=== PATIENT | female | born 1990 | race Caucasian/White ===

== ENCOUNTER 2018-06-07 13:42 | Emergency (ER) | payer OTHER, SELFPAY ==
[2018-06-07 14:50] LABS: Barbiturates NEGATIVE (NEGATIVE); Benzodiazepines NEGATIVE (NEGATIVE); Cocaine NEGATIVE (NEGATIVE); METHAMPHETAM NEGATIVE (NEGATIVE); Methadone NEGATIVE (NEGATIVE); Opiates NEGATIVE (NEGATIVE); Phencyclidine NEGATIVE (NEGATIVE); THC Cannibis POSITIVE (NEGATIVE)
[2018-06-07 14:58] LABS: Absolute Lymphocytes (CBC) 2.1 K/uL (0.7-4.9); Absolute Monocytes 0.7 K/uL (0.1-1.3); Absolute Neutrophil 6.4 K/uL (1.8-8.0); Basophils % 0.3 % (0-1.3); Eosinophils % 0.4 % (0-4.4); Hematocrit 46.3 % (36.0-45.0); Lymphocytes % 22.8 % (15.3-44.8); MCH 31.7 pg (27.0-35.0); MCV 91.9 fL (80-100); MPV 11.7 fL (7.6-11.3); RBC Red Blood Cell Count 5.04 M/uL (3.86-4.86)
[2018-06-07 15:00] LABS: Urine Blood 1+ (NEG); Urine Glucose NEGATIVE (NEG); Urine Protein NEGATIVE (NEG); Urine pH 7.5 (5.0-7.0)
[2018-06-07 15:02] LABS: Protime INR 1.05
[2018-06-07 15:23] LABS: ALT/SGPT 31 U/L (12-78); AST/SGOT 18 U/L (15-37); Alcohol Serum/Plasma < 3 mg/dL (<3); Alkaline Phosphatase 88 U/L (45-117); BUN Blood Urea Nitrogen 16 mg/dL (7-18); Bicarbonate 26 mmol/L (21-32); Bilirubin Direct 0.2 mg/dL (0-0.2); Bilirubin Total 0.7 mg/dL (0.2-1.0); Glucose Level 96 mg/dL (74-106); Potassium 3.7 mmol/L (3.5-5.1); Protein, Total 8.6 g/dL (6.4-8.2); Sodium Level 141 mmol/L (136-145)
[2018-06-07] MEDS ORDERED: NA CHLORIDE 0.9% 1,000 ML ONE (15:58)
--- NOTE | 2018-06-07 16:26 | EKG ---
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
[2018-06-07] MEDS ORDERED: DIAZEPAM 5 MG TABLET ONE (18:52)
[2018-06-08] MEDS ORDERED: ZOLPIDEM TARTRATE 5 MG TABLET ONE (01:12)
[2018-06-08] MEDS ORDERED: LORAZEPAM 1 MG TABLET ONE ×2 (07:56→16:27)
--- NOTE | 2018-06-08 08:29 | ER ---
Nurse's Notes [facility] Name: Alexandra Ambrosio Age: 27 yrs Sex: Female : 1990 Arrival Date: 06/07/2018 Time: 13:45 Bed 18 Private MD: Diagnosis: Suicidal ideations Presentation: 06/07 13:46 Presenting complaint: Patient states: She tried to commit suicide on Monday and was aj1 transported to [facility] by PD, she was suppose to be transferred to an inpatient facility, but after 3 days in the ER she was feeling better so she decided to leave. Now the suicidal thoughts have returned, states that all she could think about this morning was hanging herself and she has been unable to eat in the last 3 days. Transition of care: patient was not received from another setting of care. Onset of symptoms was June 07, 2018. Risk Assessment: Do you want to hurt yourself or someone else? Patient reports desire/thoughts of hurting themselves or someone else. Provider notified. Initial Sepsis Screen: Does the patient meet any 2 criteria? No. Patient's initial sepsis screen is negative. Does the patient have a suspected source of infection? No. Patient's initial sepsis screen is negative. Care prior to arrival: None. 13:46 Method Of Arrival: Ambulatory aj1 13:46 Acuity: MELINDA 2 aj1 Triage Assessment: 13:51 General: Appears in no apparent distress. uncomfortable, Behavior is calm, cooperative, aj1 appropriate for age. Pain: Denies pain. Neuro: Level of Consciousness is awake, alert, obeys commands. APPLICATION SUPPORT MANAGER: 13:51 LMP 05/31/2018 aj1 Historical: - Allergies: 13:51 No Known Allergies; aj1 - Home Meds: 13:51 sertraline 50 mg oral tab 1 tab once daily [Active]; hydroxyzine HCl 25 mg Oral tab 1 aj1 tab 3 times per day [Active]; - PMHx: 13:51 Depression; aj1 - PSHx: 13:51 Cholecystectomy; aj1 - Immunization history:: Flu vaccine is up to date. - Social history:: Smoking status: Patient uses tobacco products, smokes one pack cigarettes per day. Patient uses alcohol, but reports only rare drinking. Reports smoking weed a week ago, but that's not usual for her. - Ebola Screening: : Patient denies travel to an Ebola-affected area in the 21 days before illness onset. Screenin:56 Abuse screen: Denies threats or abuse. Nutritional screening: No deficits noted. rb1 Tuberculosis screening: No symptoms or risk factors identified. Fall Risk None identified. Assessment: 13:56 General: Appears in no apparent distress. comfortable, slender, Behavior is calm, rb1 cooperative, Denies fever. Neuro: Level of Consciousness is awake, alert, obeys commands, Oriented to person, place, time, situation. Cardiovascular: Capillary refill < 3 seconds is brisk in bilateral fingers. Respiratory: Airway is patent Respiratory effort is even, unlabored, Respiratory pattern is regular, symmetrical. GI: No signs and/or symptoms were reported involving the gastrointestinal system. : No signs and/or symptoms were reported regarding the genitourinary system. Derm: Skin is pink, warm \\T\\ dry. Musculoskeletal: Range of motion: intact in all extremities. 13:56 Reassessment: Personal belonging sheet was completed and signed by the pt., myself, and rb1 witnessed by CIARA Lagunas and placed on the pt. chart. Security was called to take the pt. belongings to the vault and they were also given a copy of the belongings sheet. 14:55 Reassessment: Patient appears in no apparent distress at this time. No changes from rb1 previously documented assessment. 15:54 Reassessment: Patient appears in no apparent distress at this time. Patient and/or rb1 family updated on plan of care and expected duration. Pain level reassessed. Patient is alert, oriented x 3, equal unlabored respirations, skin warm/dry/pink. 16:45 Reassessment: Patient appears in no apparent distress at this time. Patient and/or rb1 family updated on plan of care and expected duration. Pain level reassessed. Patient is alert, oriented x 3, equal unlabored respirations, skin warm/dry/pink. Pt. is crying and stated, "I just start crying, it comes in waves. I am devastated about everything that is going on.". 17:40 Reassessment: Patient appears in no apparent distress at this time. No changes from rb1 previously documented assessment. 18:22 Reassessment: Patient appears in no apparent distress at this time. Patient and/or rb1 family updated on plan of care and expected duration. Pain level reassessed. Patient is alert, oriented x 3, equal unlabored respirations, skin warm/dry/pink. Patient denies pain at this time. 19:00 Reassessment: RECD REPORT FROM SHANA CUEVAS. 27YO WF P/W +SI AND DEPRESSION 2/2 FAMILY bp STRESSORS. PT CONTINUES TO ENDORSE SI. MEDICAL CLEARANCE AND [facility] SCREENING COMPLETED, INPATIENT PLACEMENT PENDING. SITTER AT B/S. 06/08 00:00 Reassessment: PT RESTING QUIETLY, NO S/S ACUTE DISTRESS. SITTER AT B/S, PSYCH TRANSFER bp PENDING. 04:49 Reassessment: PT RESTING QUIETLY, VS STABLE. PSYCH TRANSFER REMAINS IN PROCESS. bp 07:30 Reassessment: Patient appears in no apparent distress at this time. pt currently still em wants help, reports being anxious and crying, denies pain, pt request breakfast tray, placed order for tray. 08:18 Reassessment: Patient appears in no apparent distress at this time. Patient and/or em family updated on plan of care and expected duration. Pain level reassessed. gave report to Raya from [facility], will do doc to doc. 09:00 Reassessment: Patient appears in no apparent distress at this time. Patient and/or em family updated on plan of care and expected duration. Pain level reassessed. Patient is alert, oriented x 3, equal unlabored respirations, skin warm/dry/pink. 10:56 Reassessment: spoke with Darlene with [facility] who states that she will call us back after speaking with intake nurse. Attempting to get administrative approval as doc to doc reports have been done and nurse to nurse. 11:32 Reassessment: [facility] reports that patient is on "waiting list pending discharges" Attempted to Call [facility] who reports they are also waiting for discharges. 11:35 Reassessment: [facility] states they do not have appropriate bed available at this time and will call back shortly for more information. 12:00 Reassessment: Patient appears in no apparent distress at this time. Patient and/or em family updated on plan of care and expected duration. Pain level reassessed. Patient is alert, oriented x 3, equal unlabored respirations, skin warm/dry/pink. pt reports being nauseous and unable to eat lunch tray, Chika, PAPER PRODUCTS SUPERVISOR notified, new orders received. 12:35 Reassessment: [facility] reports that they are at capacity and have no bed ss availability at this time. 13:00 Reassessment: Patient appears in no apparent distress at this time. Patient and/or em family updated on plan of care and expected duration. Pain level reassessed. Patient is alert, oriented x 3, equal unlabored respirations, skin warm/dry/pink. pt family and son at bedside Patient denies pain at this time. 14:14 Reassessment: Patient appears in no apparent distress at this time. Patient and/or em family updated on plan of care and expected duration. Pain level reassessed. Patient is alert, oriented x 3, equal unlabored respirations, skin warm/dry/pink. 16:10 Reassessment: Patient appears in no apparent distress at this time. Patient and/or em family updated on plan of care and expected duration. Pain level reassessed. Patient is alert, oriented x 3, equal unlabored respirations, skin warm/dry/pink. reports being anxious, SHELIA Farr notified, new medication orders received. 17:00 Reassessment: Patient appears in no apparent distress at this time. Patient and/or em family updated on plan of care and expected duration. Pain level reassessed. Patient is alert, oriented x 3, equal unlabored respirations, skin warm/dry/pink. 19:00 Reassessment: Patient appears in no apparent distress at this time. Patient and/or jd3 family updated on plan of care and expected duration. Pain level reassessed. Patient is alert, oriented x 3, equal unlabored respirations, skin warm/dry/pink. 19:13 Reassessment: Patient appears in no apparent distress at this time. Patient and/or em family updated on plan of care and expected duration. Pain level reassessed. Patient is alert, oriented x 3, equal unlabored respirations, skin warm/dry/pink. 20:00 Reassessment: Patient appears in no apparent distress at this time. Patient and/or jd3 family updated on plan of care and expected duration. Pain level reassessed. Patient is alert, oriented x 3, equal unlabored respirations, skin warm/dry/pink. pt resting in bed with eyes closed, even and unlabored respirations, no distress noted at this time. sitter at bedside. 21:00 Reassessment: Patient appears in no apparent distress at this time. Patient and/or jd3 family updated on plan of care and expected duration. Pain level reassessed. Patient is alert, oriented x 3, equal unlabored respirations, skin warm/dry/pink. 21:24 Reassessment: Patient appears in no apparent distress at this time. Patient and/or jd3 family updated on plan of care and expected duration. Pain level reassessed. Patient is alert, oriented x 3, equal unlabored respirations, skin warm/dry/pink. report given to EMS. Psych: 06/07 13:56 Subjective: Patient's mood is sad. Objective: Patient is cooperative, Speech is normal, rb1 Affect is appropriate. Interventions: Removed personal items and placed in bag. Patient placed in hospital gown. Searched person for dangerous items. Belonging list filled out. Suicide Risk Assessment: Sad Person Scale: Sex of patient: Female: Score 0 points. Age of patient: Score 1 point if patient 15-34. Depression: Score 1 point if signs of depression are present. Previous Attempt: Score 1 point if patient has previously attempted suicide. Substance Abuse: Score 0 point if patient does not abuse alcohol or drugs. Rational Thinking: Score 1 point if patient is lacking rational thinking. Social Support: Score 1 point if social support is lacking and/or unavailable. Organized Plan: Score 1 point if patient had a plan in place. Relationship: Score 0 point if patient has a spouse or domestic partner. Chronic Sickness: Score 0 point if patient does not have a chronic illness, debilitating, or severe disorder. TOTAL POINTS: If total points are 5-6, proposed clinical action is to strongly consider hospitalization, depending upon confidence in the follow-up arrangement. Implement suicide precautions. Safety Checks: Personal items have been removed. Door is open. No visitors are present at this time. Pt denies substance abuse. Commitment: Patient will be a voluntary commitment. Vital Signs: 13:51 BP 128 / 75; Pulse 108; Resp 20; Temp 98.9(TE); Pulse Ox 97% on R/A; Weight 52.62 kg aj1 (R); Height 5 ft. 4 in. (162.56 cm) (R); 14:15 BP 122 / 74 (auto/reg); Pulse 98; Resp 18; Pulse Ox 98% on R/A; Pain 0/10; vd2 14:30 BP 124 / 78; Pulse 98; Resp 18; Pulse Ox 98% on R/A; Pain 0/10; vd2 15:30 BP 137 / 96; Pulse 83; Resp 17; Pulse Ox 100% on R/A; rb1 16:52 BP 118 / 75 (auto/reg); Pulse 92; Resp 18 S; Pulse Ox 98% on R/A; Pain 0/10; vd2 17:30 BP 143 / 88; Pulse 86; Resp 16; Pulse Ox 95% on R/A; Pain 0/10; rb1 20:45 BP 132 / 76; Pulse 88; Resp 16; Pulse Ox 99% on R/A; mt 06/08 00:44 BP 116 / 86; Pulse 74; Resp 16; Pulse Ox 99% on R/A; mt 04:53 BP 99 / 71; Pulse 74; Resp 16; Pulse Ox 98% on R/A; mt 06:46 BP 102 / 67; Pulse 69; Resp 14; Pulse Ox 98% on R/A; mt 10:10 BP 105 / 69; Pulse 70; Resp 14; Temp 97.6(O); Pulse Ox 97% on R/A; mh5 13:40 BP 113 / 80; Pulse 80; Resp 15; Temp 98.2; Pulse Ox 98% on R/A; mh5 15:39 BP 108 / 68; Pulse 88; Resp 15; Temp 97.8(O); Pulse Ox 99% on R/A; mh5 19:24 BP 100 / 74 LA Supine (auto/reg); Pulse 80; Resp 18; Temp 98.4(O); Pulse Ox 100% on R/A;cc 06/07 13:51 Body Mass Index 19.91 (52.62 kg, 162.56 cm) aj1 ED Course: 06/07 13:45 Patient arrived in ED. sb2 13:49 Triage completed. aj1 13:51 Arm band placed on Patient placed in an exam room. aj1 13:54 Chika Juarez FNP-C is [facility]. kb 13:54 Jordan Gunderson MD is Attending Physician. kb 13:55 Safety checks: Items removed: yes. Door open/sign placed on door: yes. Sitter present: vd2 Yes. 13:58 Placed in gown. vd2 14:10 Safety checks: Door open/sign placed on door: yes. vd2 14:10 Safety checks: Sitter present: Yes. vd2 14:11 EKG done, by railroad signal technician. reviewed by Chika RAJAN. sm3 14:25 Safety checks: Door open/sign placed on door: yes. Sitter present: Yes. vd2 14:26 Initial lab(s) drawn, by me, Urine collected: clean catch specimen, clear. Inserted vd2 saline lock: 20 gauge in left antecubital area, using aseptic technique. 14:40 Safety Checks: Personal items have been removed. The door is open or patient has been rb1 placed in a hallway bed/chair. There are no family/friend visitors at this time Sitter present at this time. 14:45 Safety checks: Door open/sign placed on door: yes. Sitter present: Yes. vd2 15:00 Safety checks: Door open/sign placed on door: yes. Sitter present: Yes. vd2 15:15 Safety checks: Door open/sign placed on door: yes. Sitter present: Yes. vd2 15:30 Safety checks: Door open/sign placed on door: yes. Sitter present: Yes. vd2 15:32 Shana Badillo, RN is Primary Nurse. rb1 15:33 called the [facility] and spoke with Pita and she will call out a screener to eb come and evaluate the patient. 15:40 Rosanne from [facility] called and said she is in [place] and will be on her way eb shortly. 15:45 Safety checks: Door open/sign placed on door: yes. Sitter present: Yes. vd2 16:00 Safety checks: Door open/sign placed on door: yes. Sitter present: Yes. vd2 16:15 Safety checks: Door open/sign placed on door: yes. Sitter present: Yes. vd2 16:30 Safety checks: Door open/sign placed on door: yes. Sitter present: Yes. vd2 16:40 Rosanne from [facility] completed her screen and faxed patient information to [facility]. 16:45 Safety checks: Door open/sign placed on door: yes. Sitter present: Yes. vd2 16:57 attempted to initiate transfer at [facility] per Mylan they are at capacity and eb are unable to take the patient. 17:00 Safety checks: Door open/sign placed on door: yes. Sitter present: Yes. vd2 17:15 faxed patient records to the following facilities in the attempt to transfer: [facility], [facility], [facility], [facility], [facility], [facility], [facility], [facility], [facility], [facility], and [facility]. 17:15 Safety checks: Door open/sign placed on door: yes. Sitter present: Yes. vd2 17:30 Safety checks: Door open/sign placed on door: yes. Sitter present: Yes. vd2 17:45 Safety checks: Door open/sign placed on door: yes. Sitter present: Yes. vd2 17:47 Marina from [facility] called to let us know they could not take the patient eb due to them being at capacity. 18:00 Safety checks: Door open/sign placed on door: yes. vd2 18:15 Safety checks: Door open/sign placed on door: yes. Sitter present: Yes. vd2 18:30 Safety checks: Door open/sign placed on door: yes. Sitter present: Yes. vd2 18:45 Diet: Patient given water. vd2 18:45 Safety checks: Door open/sign placed on door: yes. Sitter present: Yes. vd2 18:59 PHCP role handed off by Chika Juarez FNP-C cp 18:59 Nic Ibrahim PA is PHCP. cp 19:00 Safety Checks: Personal items have been removed. The door is open or patient has been rb1 placed in a hallway bed/chair. There are no family/friend visitors at this time Sitter present at this time. 19:00 Report given to MASON Munoz. rb1 19:00 Safety checks: Items removed: yes. Door open/sign placed on door: yes. Family/friend mt present: no. Sitter present: Yes. 19:03 Safety Checks: Personal items have been removed. The door is open or patient has been er placed in a hallway bed/chair. There are no family/friend visitors at this time Sitter present at this time. 19:08 Primary Nurse role handed off by Shana Badillo, MASON bp 19:08 Alexander Da Silva, MASON is Primary Nurse. bp 19:14 Safety Checks: Personal items have been removed. The door is open or patient has been er placed in a hallway bed/chair. There are no family/friend visitors at this time Sitter present at this time. 19:15 Safety checks: Items removed: yes. Door open/sign placed on door: yes. Family/friend mt present: no. Sitter present: Yes. 19:30 Safety Checks: Personal items have been removed. The door is open or patient has been er placed in a hallway bed/chair. There are no family/friend visitors at this time Sitter present at this time. 19:30 Safety checks: Items removed: yes. Door open/sign placed on door: yes. Family/friend mt present: no. Sitter present: Yes. 19:45 Safety checks: Items removed: yes. Door open/sign placed on door: yes. Family/friend mt present: no. Sitter present: Yes. 20:00 Safety checks: Items removed: yes. Door open/sign placed on door: yes. Family/friend mt present: no. Sitter present: Yes. 20:15 Safety checks: Items removed: yes. Door open/sign placed on door: yes. Family/friend mt present: no. Sitter present: Yes. 20:30 Safety checks: Items removed: yes. Door open/sign placed on door: yes. Family/friend mt present: no. Sitter present: Yes. 20:45 Safety checks: Items removed: yes. Door open/sign placed on door: yes. Family/friend mt present: no. Sitter present: Yes. 21:00 Safety checks: Items removed: yes. Door open/sign placed on door: yes. Family/friend mt present: no. Sitter present: Yes. 21:15 Safety checks: Items removed: yes. Door open/sign placed on door: yes. Family/friend mt present: no. Sitter present: Yes. 21:30 Safety checks: Items removed: yes. Door open/sign placed on door: yes. Family/friend mt present: no. Sitter present: Yes. 21:45 Safety checks: Items removed: yes. Door open/sign placed on door: yes. Family/friend mt present: no. Sitter present: Yes. 22:00 Safety checks: Items removed: yes. Door open/sign placed on door: yes. Family/friend mt present: no. Sitter present: Yes. 22:15 Safety checks: Items removed: yes. Door open/sign placed on door: yes. Family/friend mt present: no. Sitter present: Yes. 22:30 Safety checks: Items removed: yes. Door open/sign placed on door: yes. Family/friend mt present: no. Sitter present: Yes. 22:30 Safety checks: Items removed: yes. Door open/sign placed on door: yes. Family/friend mt present: no. Sitter present: Yes. 22:45 Safety checks: Items removed: yes. Door open/sign placed on door: yes. Family/friend mt present: no. Sitter present: Yes. 23:00 Safety checks: Items removed: yes. Door open/sign placed on door: yes. Family/friend mt present: no. Sitter present: Yes. 23:15 Safety checks: Items removed: yes. Safety checks: Door open/sign placed on door: yes. jw5 Family/friend present: no. Sitter present: Yes. Placed in gown. 23:30 Safety checks: Items removed: yes. Door open/sign placed on door: yes. Family/friend jw5 present: no. Sitter present: Yes. 23:45 Safety checks: Items removed: yes. Door open/sign placed on door: yes. Family/friend jw5 present: no. Sitter present: Yes. 06/08 00:00 Safety checks: Items removed: yes. Door open/sign placed on door: yes. Family/friend jw5 present: no. Sitter present: Yes. 00:15 Safety checks: Items removed: yes. Door open/sign placed on door: yes. Family/friend jw5 present: no. Sitter present: Yes. 00:30 Safety checks: Items removed: yes. Door open/sign placed on door: yes. Family/friend jw5 present: no. Sitter present: Yes. 00:45 Safety checks: Items removed: yes. Door open/sign placed on door: yes. Family/friend mt present: no. Sitter present: Yes. 01:00 Safety checks: Items removed: yes. Door open/sign placed on door: yes. Family/friend mt present: no. Sitter present: Yes. 01:15 Safety checks: Items removed: yes. Door open/sign placed on door: yes. Family/friend mt present: no. Sitter present: Yes. 01:30 Safety checks: Items removed: yes. Door open/sign placed on door: yes. Family/friend mt present: no. Sitter present: Yes. 01:45 Safety checks: Items removed: yes. Door open/sign placed on door: yes. Family/friend mt present: no. Sitter present: Yes. 02:00 Safety checks: Items removed: yes. Door open/sign placed on door: yes. Family/friend mt present: no. Sitter present: Yes. 02:15 Safety checks: Items removed: yes. Door open/sign placed on door: yes. Family/friend mt present: no. Sitter present: Yes. 02:30 Safety checks: Items removed: yes. Door open/sign placed on door: yes. Family/friend mt present: no. Sitter present: Yes. 02:45 Safety checks: Items removed: yes. Door open/sign placed on door: yes. Family/friend mt present: no. Sitter present: Yes. 03:00 Safety checks: Items removed: yes. Door open/sign placed on door: yes. Family/friend mt present: no. Sitter present: Yes. 03:15 Safety checks: Items removed: yes. Door open/sign placed on door: yes. Family/friend mt present: no. Sitter present: Yes. 03:30 Safety checks: Items removed: yes. Door open/sign placed on door: yes. Family/friend mt present: no. Sitter present: Yes. 03:45 Safety checks: Items removed: yes. Door open/sign placed on door: yes. Family/friend mt present: no. Sitter present: Yes. 04:00 Safety checks: Items removed: yes. Door open/sign placed on door: yes. Family/friend mt present: no. Sitter present: Yes. 04:15 Safety checks: Items removed: yes. Door open/sign placed on door: yes. Family/friend mt present: no. Sitter present: Yes. 04:30 Safety checks: Items removed: yes. Door open/sign placed on door: yes. Family/friend mt present: no. Sitter present: Yes. 04:45 Safety checks: Items removed: yes. Door open/sign placed on door: yes. Family/friend mt present: no. Sitter present: Yes. 05:00 Safety checks: Items removed: yes. Door open/sign placed on door: yes. Family/friend mt present: no. Sitter present: Yes. 05:15 Safety checks: Items removed: yes. Door open/sign placed on door: yes. Family/friend mt present: no. Sitter present: Yes. 05:30 Safety checks: Items removed: yes. Door open/sign placed on door: yes. Family/friend mt present: no. Sitter present: Yes. 05:45 Safety checks: Items removed: yes. Door open/sign placed on door: yes. Family/friend mt present: no. Sitter present: Yes. 06:00 Safety checks: Items removed: yes. Door open/sign placed on door: yes. Family/friend mt present: no. Sitter present: Yes. 06:15 Safety checks: Items removed: yes. Door open/sign placed on door: yes. Family/friend mt present: no. Sitter present: Yes. 06:30 Safety checks: Items removed: yes. Door open/sign placed on door: yes. Family/friend mt present: no. Sitter present: Yes. 06:45 Safety checks: Items removed: yes. Door open/sign placed on door: yes. Family/friend mt present: no. Sitter present: Yes. 07:00 Safety checks: Items removed: yes. Door open/sign placed on door: yes. Family/friend mh5 present: no. Sitter present: Yes. 07:08 Report received from MASON Munoz. em 07:15 Safety checks: Items removed: yes. Door open/sign placed on door: yes. Family/friend mh5 present: no. Sitter present: Yes. 07:20 PHCP role handed off by Nic Ibrahim PA kb 07:20 Chika Juarez FNP-C is PHCP. pinky 07:21 Oral care given. mh5 07:30 Safety checks: Items removed: yes. Door open/sign placed on door: yes. Family/friend mh5 present: no. Sitter present: Yes. 07:45 Safety checks: Items removed: yes. Door open/sign placed on door: yes. Family/friend mh5 present: no. Sitter present: Yes. Diet: Patient given a regular meal tray. 08:00 Safety checks: Items removed: yes. Door open/sign placed on door: yes. Family/friend mh5 present: no. Sitter present: Yes. 08:15 Safety checks: Items removed: yes. Door open/sign placed on door: yes. Family/friend mh5 present: no. Sitter present: Yes. 08:30 Safety checks: Items removed: yes. Door open/sign placed on door: yes. Family/friend mh5 present: no. Sitter present: Yes. 08:45 Safety checks: Items removed: yes. Door open/sign placed on door: yes. Family/friend mh5 present: no. Sitter present: Yes. 09:00 Safety checks: Items removed: yes. Door open/sign placed on door: yes. Family/friend mh5 present: no. Sitter present: Yes. 09:15 Safety checks: Items removed: yes. Door open/sign placed on door: yes. Family/friend mh5 present: no. Sitter present: Yes. 09:30 Safety checks: Items removed: yes. Door open/sign placed on door: yes. Family/friend mh5 present: no. Sitter present: Yes. 09:32 called and spoke with Mert at [facility] to check the status of a transfer, per rafael Painting the new nurse taking the patient is reviewing the chart. We should get a call back shortly. 09:45 Safety checks: Items removed: yes. Door open/sign placed on door: yes. Family/friend mh5 present: no. Sitter present: Yes. 10:00 Safety checks: Items removed: yes. Door open/sign placed on door: yes. Family/friend mh5 present: no. Sitter present: Yes. 10:15 Safety checks: Items removed: yes. Door open/sign placed on door: yes. Family/friend mh5 present: no. Sitter present: Yes. 10:30 Safety checks: Items removed: yes. Door open/sign placed on door: yes. Family/friend mh5 present: no. Sitter present: Yes. 10:45 Safety checks: Items removed: yes. Door open/sign placed on door: yes. Family/friend mh5 present: no. Sitter present: Yes. 11:00 Safety checks: Items removed: yes. Door open/sign placed on door: yes. Family/friend mh5 present: no. Sitter present: Yes. 11:15 Safety checks: Items removed: yes. Door open/sign placed on door: yes. Family/friend mh5 present: no. Sitter present: Yes. 11:30 Safety checks: Items removed: yes. Door open/sign placed on door: yes. Family/friend mh5 present: no. Sitter present: Yes. 11:31 Diet: Patient given a regular meal tray. mh5 11:45 Safety checks: Items removed: yes. Door open/sign placed on door: yes. Family/friend mh5 present: no. Sitter present: Yes. 12:00 Safety checks: Items removed: yes. Door open/sign placed on door: yes. Family/friend mh5 present: no. Sitter present: Yes. 12:15 Safety checks: Items removed: yes. Door open/sign placed on door: yes. Family/friend mh5 present: no. Sitter present: Yes. 12:25 No provider procedures requiring assistance completed. em 12:30 Safety checks: Items removed: yes. Door open/sign placed on door: yes. Family/friend mh5 present: no. Sitter present: Yes. 12:45 Safety checks: Items removed: yes. Door open/sign placed on door: yes. Family/friend mh5 present: no. Sitter present: Yes. 13:00 Safety checks: Items removed: yes. Door open/sign placed on door: yes. Family/friend mh5 present: no. Sitter present: Yes. 13:15 Safety checks: Items removed: yes. Door open/sign placed on door: yes. Family/friend mh5 present: yes. Family/friends encouraged to stay with patient. Sitter present: Yes. 13:30 Safety checks: Items removed: yes. Door open/sign placed on door: yes. Family/friend mh5 present: no. Sitter present: Yes. 13:45 Safety checks: Items removed: yes. Door open/sign placed on door: yes. Family/friend mh5 present: no. Sitter present: Yes. 14:00 Safety checks: Items removed: yes. Door open/sign placed on door: yes. Family/friend mh5 present: no. Sitter present: Yes. 14:15 Safety checks: Items removed: yes. Door open/sign placed on door: yes. Family/friend mh5 present: no. Sitter present: Yes. Safety checks: Items removed: yes. 14:30 Safety checks: Items removed: yes. Door open/sign placed on door: yes. Family/friend mh5 present: yes. Family/friends encouraged to stay with patient. Sitter present: Yes. 14:45 Safety checks: Items removed: yes. Door open/sign placed on door: yes. Family/friend mh5 present: no. Sitter present: Yes. 15:00 Safety checks: Items removed: yes. Door open/sign placed on door: no. Family/friend mh5 present: yes. Family/friends encouraged to stay with patient. Sitter present: Yes. 15:00 BATHED. mh5 15:15 Safety checks: Items removed: yes. Door open/sign placed on door: yes. Family/friend mh5 present: yes. Family/friends encouraged to stay with patient. Sitter present: Yes. 15:30 Safety checks: Items removed: yes. Door open/sign placed on door: yes. Family/friend mh5 present: yes. Family/friends encouraged to stay with patient. Sitter present: Yes. 15:30 Safety checks: Items removed: yes. Door open/sign placed on door: yes. Family/friend mh5 present: yes. Family/friends encouraged to stay with patient. Sitter present: Yes. 15:45 Safety checks: Items removed: yes. Door open/sign placed on door: yes. Family/friend mh5 present: yes. Sitter present: Yes. 16:00 Safety checks: Items removed: yes. Door open/sign placed on door: yes. Family/friend mh5 present: yes. Sitter present: Yes. 16:15 Safety checks: Items removed: yes. Door open/sign placed on door: yes. Family/friend mh5 present: yes. Family/friends encouraged to stay with patient. Sitter present: Yes. 16:30 Safety checks: Items removed: yes. Door open/sign placed on door: yes. Family/friend mh5 present: yes. Family/friends encouraged to stay with patient. Sitter present: Yes. 16:36 connected Nakul from [facility] with the ED nurse for nurse to nurse. eb 16:45 Safety checks: Items removed: yes. Door open/sign placed on door: yes. Family/friend mh5 present: yes. Family/friends encouraged to stay with patient. Sitter present: Yes. 17:00 Safety checks: Items removed: yes. Door open/sign placed on door: yes. Family/friend mh5 present: yes. Family/friends encouraged to stay with patient. Sitter present: Yes. 17:04 refaxed all the clinical's to [facility] as requested by the transfer center again. eb 17:15 Safety checks: Items removed: yes. Door open/sign placed on door: yes. Family/friend mh5 present: no. Sitter present: Yes. 17:30 Safety checks: Items removed: yes. Door open/sign placed on door: yes. Family/friend mh5 present: no. Sitter present: Yes. 17:45 Safety checks: Items removed: yes. Door open/sign placed on door: yes. Family/friend mh5 present: no. Sitter present: Yes. 18:00 Safety checks: Items removed: yes. Door open/sign placed on door: yes. Family/friend mh5 present: no. Sitter present: Yes. 18:15 Safety checks: Items removed: yes. Door open/sign placed on door: yes. Family/friend mh5 present: no. Sitter present: Yes. 18:30 Safety checks: Items removed: yes. Safety checks: Items removed: yes. Door open/sign mh5 placed on door: yes. Family/friend present: no. Sitter present: Yes. 18:45 Safety checks: Items removed: yes. Door open/sign placed on door: yes. Family/friend mh5 present: no. Sitter present: Yes. 19:00 Safety checks: Items removed: yes. Door open/sign placed on door: yes. Family/friend mh5 present: no. Sitter present: Yes. 19:15 Safety checks: Items removed: yes. Door open/sign placed on door: yes. Family/friend cc present: no. Sitter present: Yes. 19:30 Safety checks: Items removed: yes. Door open/sign placed on door: yes. Family/friend cc present: no. Sitter present: Yes. 19:45 Safety checks: Items removed: yes. Door open/sign placed on door: yes. Family/friend cc present: no. Sitter present: Yes. 20:00 Safety checks: Items removed: yes. Door open/sign placed on door: yes. Family/friend cc present: no. Sitter present: Yes. 20:15 Safety checks: Items removed: yes. Door open/sign placed on door: yes. Family/friend cc present: no. Sitter present: Yes. 20:30 Safety checks: Items removed: yes. Door open/sign placed on door: yes. Family/friend cc present: no. Sitter present: Yes. 20:45 Safety checks: Items removed: yes. Door open/sign placed on door: yes. Family/friend cc present: no. Sitter present: Yes. 20:45 IV discontinued, intact, bleeding controlled, No redness/swelling at site. Pressure cc dressing applied. 21:00 Safety checks: Items removed: yes. Door open/sign placed on door: yes. Family/friend cc present: no. Sitter present: Yes. 21:20 Belongings given to [facility]. cc 21:24 IV discontinued, see previous documentation. jd3 Administered Medications: 06/07 16:01 Drug: NS 0.9% 1000 ml Route: IV; Rate: 1000 ml; Site: left antecubital; rb1 18:51 Drug: Valium 5 mg Route: PO; rb1 20:00 Follow up: Response: Anxiety decreased bp 06/08 01:11 Drug: Ambien 5 mg Route: PO; bp 07:54 Follow up: Response: No adverse reaction em 07:54 Drug: Ativan 1 mg Route: PO; em 09:54 Follow up: Response: No adverse reaction; Anxiety decreased em 12:05 Drug: Zofran 4 mg Route: PO; em 16:42 Follow up: Response: No adverse reaction; Nausea is decreased em 16:24 Drug: Ativan 1 mg Route: PO; em 19:00 Follow up: Response: No adverse reaction jd3 Outcome: 08:28 ER care complete, transfer ordered by MD. vance 21:23 Transferred by ground EMS to [facility], Transfer form completed. Note: jd3 report given to Kiera CUEVAS 21:23 Condition: stable 21:23 Instructed on the need for transfer, Demonstrated understanding of instructions. 21:25 Patient left the ED. jd3 Signatures: Chika Juarez, MARCELO-C MARCELO-Caitlin Delcid RN RN aj1 Niranjan Mann, DYE JIG OPERATOR DYE JIG OPERATOR em Teresa Moore, RN RN [facility], [facility]2 Astrid Coker Corey, PA PA cp Barber, Rebecca, MASON RN rb1 Vito, Deborah 5 [place], [facility] Ree, MASON Shepherd RN jd3 Alexander Da Silva RN RN bp Nick, Fay sb2 Donis, Christine 5 Kay Chaney Shakira 3 Vaishali Yeh Corrections: (The following items were deleted from the chart) 06/07 19:17 19:00 Reassessment: RECD REPORT FROM SHANA CUEVAS. 27YO WF P/W +SI AND DEPRESSION 2/2 bp FAMILY STRESSORS. PT CONTINUES TO ENDORSE SI. MEDICAL CLEARANCE AND [facility] SCREENING COMPLETED, INPATIENT PLACEMENT PENDING bp
--- NOTE | 2018-06-08 08:29 | EDPHYS ---
Physician Documentation [facility] Name: Alexandra Ambrosio Age: 27 yrs Sex: Female : 1990 Arrival Date: 06/07/2018 Time: 13:45 Bed 18 Private MD: ED Physician Jordan Gunderson HPI: 06/07 14:06 This 27 yrs old Female presents to ER via Ambulatory with complaints of kb Suicidal Ideation. 14:06 The patient presents to the emergency department with depression, over a relationship, kb suicide ideation, and the patient has a plan, to hang oneself. Onset: The symptoms/episode began/occurred 5 day(s) ago. Past psychiatric history: Prior diagnosis: depression, Psychiatric medications include: Zoloft, the patient has had a prior suicide gesture, where the patient took pills/meds, last week, the patient does not have a previous inpatient psychiatric history. Associated signs and symptoms: Pertinent positives; depression, suicide ideation, Pertinent negatives: abdominal pain, anxiety, chest pain, chills, delusions, fever, hallucinations, headache, homicidal ideation, nausea, night sweats, palpitations, paranoia, shortness of breath, substance abuse, tremor, vomiting. Severity of symptoms: At their worst the symptoms were moderate in the emergency department the symptoms are unchanged. The patient has experienced a previous episode, approximately 5 days ago. The patient has been recently seen by a physician:. 14:57 Pt states she is going through a divorce and her is trying to take custody of kb their son. States all she can think about lately is killing herself. States she tried to kill herself on Monday by taking benadryl and drinking alcohol. "I thought it would make my respirations go down and I wouldn't wake up. I thought it would look like an accident that way." States she woke up and wasn't in a good place. Went to her 's house and got into an argument, then tried to hang herself in the bedroom. She called the plate molder and told them she needed help after that and was transported to [facility]. States she was supposed to go to an inpatient facility, but waiting at [facility] was making her depression worse. "It's like skilled nursing there. I thought I actually did and was in hell." Her Mom came up and got her released from there. STates she has periods of happiness, but then the suicidal thoughts come back to the front and that is all she can think about again. Was seen at [facility] yesterday. States "They asked me if I was having suicidal thoughts and I said no, but I osiel was. I just didn't want to go back to [facility]." Started feeling a little better last night, but woke up with thought of suicide again. "I should have been more patient and waited for an inpatient bed because I need it.". 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 - Social history:: Smoking status: Patient uses tobacco products, smokes one pack cigarettes per day. Patient uses alcohol, but reports only rare drinking. Reports smoking weed a week ago, but that's not usual for her. - Ebola Screening: : Patient denies travel to an Ebola-affected area in the 21 days before illness onset. ROS: 14:57 Constitutional: Negative for fever, chills, and weight loss, Cardiovascular: Negative kb for chest pain, palpitations, and edema, Respiratory: Negative for shortness of breath, cough, wheezing, and pleuritic chest pain, Abdomen/GI: Negative for abdominal pain, nausea, vomiting, diarrhea, and constipation, Back: Negative for injury and pain, : Negative for injury, bleeding, discharge, and swelling, MS/Extremity: Negative for injury and deformity, Skin: Negative for injury, rash, and discoloration, Neuro: Negative for headache, weakness, numbness, tingling, and seizure. 14:57 Psych: Positive for depression, suicidal ideation, Negative for anxiety, drug dependence, alcohol dependence, auditory hallucinations, visual hallucinations, homicidal ideation, insomnia, suicide gesture. Exam: 14:57 Constitutional: This is a well developed, well nourished patient who is awake, alert, kb and in no acute distress. Head/Face: Normocephalic, atraumatic. Chest/axilla: Normal chest wall appearance and motion. Nontender with no deformity. No lesions are appreciated. Cardiovascular: Regular rate and rhythm with a normal S1 and S2. No gallops, murmurs, or rubs. Normal PMI, no JVD. No pulse deficits. Respiratory: Lungs have equal breath sounds bilaterally, clear to auscultation and percussion. No rales, rhonchi or wheezes noted. No increased work of breathing, no retractions or nasal flaring. Abdomen/GI: Soft, non-tender, with normal bowel sounds. No distension or tympany. No guarding or rebound. No evidence of tenderness throughout. Back: No spinal tenderness. No costovertebral tenderness. Full range of motion. Skin: Warm, dry with normal turgor. Normal color with no rashes, no lesions, and no evidence of cellulitis. MS/ Extremity: Pulses equal, no cyanosis. Neurovascular intact. Full, normal range of motion. Neuro: Awake and alert, GCS 15, oriented to person, place, time, and situation. Cranial nerves II-XII grossly intact. Motor strength 5/5 in all extremities. Sensory grossly intact. Cerebellar exam normal. Normal gait. 14:57 Psych: Behavior/mood is cooperative, depressed, Affect is calm, Oriented to person, place, time, Patient having thoughts of suicide. Plan for suicide is hang herself Judgement / Insight is normal. Memory is normal. Delusions/hallucinations are not present. Vital Signs: 13:51 BP 128 / 75; Pulse 108; Resp 20; Temp 98.9(TE); Pulse Ox 97% on R/A; Weight 52.62 kg aj1 (R); Height 5 ft. 4 in. (162.56 cm) (R); 14:15 BP 122 / 74 (auto/reg); Pulse 98; Resp 18; Pulse Ox 98% on R/A; Pain 0/10; vd2 14:30 BP 124 / 78; Pulse 98; Resp 18; Pulse Ox 98% on R/A; Pain 0/10; vd2 15:30 BP 137 / 96; Pulse 83; Resp 17; Pulse Ox 100% on R/A; rb1 16:52 BP 118 / 75 (auto/reg); Pulse 92; Resp 18 S; Pulse Ox 98% on R/A; Pain 0/10; vd2 17:30 BP 143 / 88; Pulse 86; Resp 16; Pulse Ox 95% on R/A; Pain 0/10; rb1 20:45 BP 132 / 76; Pulse 88; Resp 16; Pulse Ox 99% on R/A; mt 06/08 00:44 BP 116 / 86; Pulse 74; Resp 16; Pulse Ox 99% on R/A; mt 04:53 BP 99 / 71; Pulse 74; Resp 16; Pulse Ox 98% on R/A; mt 06:46 BP 102 / 67; Pulse 69; Resp 14; Pulse Ox 98% on R/A; mt 10:10 BP 105 / 69; Pulse 70; Resp 14; Temp 97.6(O); Pulse Ox 97% on R/A; mh5 13:40 BP 113 / 80; Pulse 80; Resp 15; Temp 98.2; Pulse Ox 98% on R/A; mh5 15:39 BP 108 / 68; Pulse 88; Resp 15; Temp 97.8(O); Pulse Ox 99% on R/A; mh5 19:24 BP 100 / 74 LA Supine (auto/reg); Pulse 80; Resp 18; Temp 98.4(O); Pulse Ox 100% on R/A;cc 06/07 13:51 Body Mass Index 19.91 (52.62 kg, 162.56 cm) aj1 MDM: 06/07 13:55 Patient medically screened. kb 15:05 Data reviewed: vital signs, nurses notes. Data interpreted: Pulse oximetry: on room air kb is 98 %. Interpretation: normal. 16:36 ED course: Rosanne from [facility] at bedside for evaluation. kb 16:38 ED course: Rosanne agrees with inpatient treatment being the best option for this kb patient. Will start the transfer process to inpatient psych facility.. 06/08 03:20 Transition of care: After a detail discussion of the patient's case, care is cp transferred to Octavio Bee MD. ED course: VSS. Patient sleeping in exam room. 08:27 Counseling: I had a detailed discussion with the patient and/or guardian regarding: the kb historical points, exam findings, and any diagnostic results supporting the discharge/admit diagnosis, lab results, radiology results, the need to transfer to another facility, [facility] does not immediately have the required specialist. 06/07 14:05 Order name: Acetaminophen; Complete Time: 15:25 kb 06/07 14:05 Order name: Basic Metabolic Panel; Complete Time: 15:25 kb 06/07 14:05 Order name: CBC with Diff; Complete Time: 15:05 kb 06/07 14:05 Order name: ETOH Level; Complete Time: 15:25 kb 06/07 14:05 Order name: Hepatic Function; Complete Time: 15:25 kb 06/07 14:05 Order name: PT-INR; Complete Time: 15:15 kb 06/07 14:05 Order name: Ptt, Activated; Complete Time: 15:15 kb 06/07 14:05 Order name: Salicylate; Complete Time: 15:09 kb 06/07 14:05 Order name: Urine Drug Screen; Complete Time: 14:54 kb 06/07 14:47 Order name: Urine Dipstick--Ancillary (enter results); Complete Time: 15:49 eb 06/07 15:21 Order name: Urine --Ancillary; Complete Time: 15:29 EDMS 06/07 14:05 Order name: EKG; Complete Time: 14:06 kb 06/08 07:02 Order name: Diet Regular; Complete Time: 07:03 mh5 06/08 07:58 Order name: Diet Regular; Complete Time: 07:58 em 06/08 14:39 Order name: Diet Regular; Complete Time: 14:40 mh5 06/07 14:05 Order name: Urine Test (obtain specimen); Complete Time: 14:31 kb 06/07 14:05 Order name: EKG - Nurse/Tech; Complete Time: 14:31 kb 06/07 14:05 Order name: IV Saline Lock; Complete Time: 14:31 kb 06/07 14:05 Order name: Labs collected and sent; Complete Time: 14:31 kb 06/07 14:05 Order name: Urine Dipstick-Ancillary (obtain specimen); Complete Time: 14:32 kb Administered Medications: 06/07 16:01 Drug: NS 0.9% 1000 ml Route: IV; Rate: 1000 ml; Site: left antecubital; rb1 18:51 Drug: Valium 5 mg Route: PO; rb1 20:00 Follow up: Response: Anxiety decreased bp 06/08 01:11 Drug: Ambien 5 mg Route: PO; bp 07:54 Follow up: Response: No adverse reaction em 07:54 Drug: Ativan 1 mg Route: PO; em 09:54 Follow up: Response: No adverse reaction; Anxiety decreased em 12:05 Drug: Zofran 4 mg Route: PO; em 16:42 Follow up: Response: No adverse reaction; Nausea is decreased em 16:24 Drug: Ativan 1 mg Route: PO; em 19:00 Follow up: Response: No adverse reaction jd3 Disposition: 06/08/18 08:28 Transfer ordered to Psych Facility. Diagnosis is Suicidal ideations. - Reason for transfer: Higher level of care. - Accepting physician is [facility]. - Condition is Stable. - Problem is new. - Symptoms are unchanged. Addendum: 06/12/2018 23:41 Co-signature as Attending Physician, Jordan Gunderson MD. r n Signatures: Dispatcher [employer] [facility] Chika Juarez, DRAFTER ELECTRICAL-C DRAFTER ELECTRICAL-Ckb Caitlin Esquivel RN RN aj1 Niranjan Mann, COLORER MACHINE COLORER MACHINE Jordan Mathews MD MD rn Page, Corey, PA PA cp Barber, Rebecca, RN RN rb1 Chemo Borges MD MD gs Davies, Jonathon, RN RN jd3 Alexander Da Silva RN RN bp Corrections: (The following items were deleted from the chart) 06/08 15:32 06/07 14:48 URINE --ANCILLARY+UC.LAB.BRZ ordered. [facility] 06/08 15:32 08 15:05 URINE --ANCILLARY+UC.LAB.BRZ reviewed. [facility] 06/08 15:32 10:28 URINE PREG POS. [facility] 15:32 10:29 OrderId: [id number] PrecursorText: InterpretationText: [facility] 20:07 08:28 06/08/2018 08:28 Transfer ordered to Psych Facility. Diagnosis is Suicidal gs ideations. Reason for transfer: Higher level of care. Accepting physician is Dr Gallego at [facility]. Condition is Stable. Problem is new. Symptoms are unchanged. 21:25 20:07 06/08/2018 08:28 Transfer ordered to Psych Facility. Diagnosis is Suicidal jd3 ideations. Reason for transfer: Higher level of care. Accepting physician is [facility]. Condition is Stable. Problem is new. Symptoms are unchanged.
[2018-06-08] MEDS ORDERED: ONDANSETRON 4 MG (ODT) TAB ONE (12:02)
[2018-06-08 21:53] VITALS: BP 100/74; TEMP 98.4; O2SAT 100
== END 2018-06-08 21:25 ==
LOC: ER 13:42
DX: R45.851 Suicidal ideations (principal); F32.9 Major depressive disorder, single episode, unspecified; F17.210 Nicotine dependence, cigarettes, uncomplicated
CPT/HCPCS: 36415; 80048; 80076; 80307; 80320; 80329; 81003; 81025; 85025; 85610; 85730; 93005; 99285; J7030

== ENCOUNTER 2019-03-12 10:04 | Emergency (ER) | payer SELFPAY ==
--- OUTSIDE RECORDS SUMMARY | 2019-03-12 10:52 | XMS REPORT ---
:1990 [facility] [address] [place] [address] Dr. Hines [address] [place] [id number] Care Team Providers Name Role Phone Unavailable Unavailable Unavailable Problems This patient has no known problems. Allergies, Adverse Reactions, Alerts This patient has no known allergies or adverse reactions. Medications This patient has no known medications. Encounters Start End Encounter Admission Attending Care Care Encounter Date/Time Date/Time Type Type Clinicians Facility Department ID 2018-06-03 2018-06-03 Emergency [facility] [id number] 14:44:33 14:44:33
--- OUTSIDE RECORDS SUMMARY | 2019-03-12 10:52 | XMS REPORT | Clinical Summary ---
:1990 Author Organization [facility] Address [address] [place] [address] Care Team Providers Name Role Phone Asked, No Pcp Primary Care Provider Unavailable Allergies No Known Allergies Medications Medication Sig Dispensed Refills Start Date End Date Status sertraline (ZOLOFT) Take 50 mg by 0 Discontinued 50 MG tablet mouth daily. 8 hydrOXYzine Take 25 mg by 0 06/04/2018 Discontinued (ATARAX) 25 MG mouth 3 (three) 8 tablet times a day. gabapentin Take 1 capsule 45 capsule 0 06/14/2018 (NEURONTIN) 100 mg (100 mg total) 8 capsuleIndications: by mouth 3 Anxiety (three) times a day for 15 days. OXcarbazepine Take 1 tablet 30 tablet 0 06/14/2018 (TRILEPTAL) 300 MG (300 mg total) 8 tabletIndications: by mouth 2 mood stabilization (two) times a day for 15 days. FLUoxetine (PROzac) Take 1 capsule 15 capsule 0 06/15/2018 20 MG (20 mg total) 8 capsuleIndications: by mouth every Anxiety with morning for 15 Depression days. traZODone (DESYREL) Take 1 tablet 15 tablet 0 06/14/2018 50 MG (50 mg total) 8 tabletIndications: by mouth insomnia associated nightly as with depression needed for sleep for up to 15 days. nicotine polacrilex Chew 1 each (2 100 each 0 06/14/2018 (NICORETTE) 2 mg mg total) every 8 gumIndications: 1 (one) hour as Smoking Cessation needed for smoking cessation (nicotine cravings) for up to 30 days. Active Problems Problem Noted Date Alcohol use disorder, mild, abuse 06/13/2018 Cannabis use disorder, mild, abuse 06/13/2018 Severe episode of recurrent major depressive disorder, without psychotic 06/12 features Encounters Date Type Specialty Care Team Description 06/19/2018 Clinical Support Home Health Services 06/08/2018 - Hospital Encounter Psychiatry AryMichelle Burden, 06/14/2018 Indiana Reyes MD 06/08/2018 Intake Access N/A after 03/11/2018 Family History Medical History Relation Name Comments OCD Brother Alcohol abuse Maternal Grandfather Anxiety disorder Maternal Grandfather Drug abuse Maternal Grandfather OCD Maternal Grandfather Anxiety disorder Mother Relation Name Status Comments Brother Maternal Grandfather Mother Social History Tobacco Use Types Packs/Day Years Used Date Former Smoker Cigarettes 1 04/08/2018 - 06/09/2018 Smokeless Tobacco: Never Used Tobacco Cessation: Counseling Given: Yes Comments: 2 months Alcohol Use Drinks/Week oz/Week Comments No Sex Assigned at Date Recorded Not on file Job Start Date Occupation Industry Not on file Not on file Not on file Travel History Travel Start Travel End No recent travel history available. Last Filed Vital Signs Vital Sign Reading Time Taken Blood Pressure 99/63 06/19/2018 7:54 AM CDT Pulse 78 06/19/2018 7:54 AM CDT Temperature 36.7 C (98 F) 06/19/2018 7:54 AM CDT Respiratory Rate 16 06/19/2018 7:54 AM CDT Oxygen Saturation 93% 06/13/2018 8:16 PM CDT Inhaled Oxygen Concentration - - Weight 53.4 kg (117 lb 12.8 oz) 06/13/2018 6:26 AM CDT Height 162.6 cm (5' 4") 06/08/2018 11:35 PM CDT Body Mass Index 20.22 06/08/2018 11:35 PM CDT Plan of Treatment Health Maintenance Due Date Last Done Comments INFLUENZA VACCINE 05/09/2019 Procedures Procedure Name Priority Date/Time Associated Diagnosis Comments LIPID PANEL Routine 06/10/2018 5:51 AM Results for this CDT procedure are in the results section. HEMOGLOBIN A1C Routine 06/10/2018 5:51 AM Results for this CDT procedure are in the results section. ECG 12-LEAD STAT 06/09/2018 11:07 AM Results for this CDT procedure are in the results section. after 03/11/2018 Results Hemoglobin A1c (06/10/2018 5:51 AM CDT) Hemoglobin A1C 5.3 4.0 - 5.6 % [facility] DEPARTMENT OF Comment: PATHOLOGY AND HbA1c cutoffs for diagnosing diabetes: GENOMIC MEDICINE 4.0% - 5.6%=normal 5.7% - 6.4%=increased risk for diabetes (prediabetes) >=6.5%=diabetes Goals for glycemic control (ADA 2016) < 7.0%Target for non adults with diabetes. More or less stringent targets may be appropriate for individual patients. <7.5% Target for Children and adolescents with type 1 diabetes. Specimen Blood Performing Organization Address City/State/Zipcode Phone Number [facility] DEPARTMENT OF PATHOLOGY AND [address] [place] [address] GENOMIC MEDICINE Lipid panel (06/10/2018 5:51 AM CDT) Cholesterol 123 <200 mg/dL [facility] DEPARTMENT OF PATHOLOGY AND GENOMIC MEDICINE Triglycerides 126 <150 mg/dL [facility] DEPARTMENT OF PATHOLOGY AND GENOMIC MEDICINE HDL cholesterol 28 (L) >40 mg/dL [facility] DEPARTMENT OF PATHOLOGY AND GENOMIC MEDICINE LDL cholesterol 77Comment: Result <100 mg/dL [facility] DEPARTMENT obtained by direct OF PATHOLOGY AND LDL measurement GENOMIC MEDICINE Lipid panel SeeBelow [facility] DEPARTMENT interpretation Comment: OF PATHOLOGY AND Total Cholesterol (mg/dL) GENOMIC MEDICINE <200 Desirable 521-450Laufpqlhxi-nzdb >=240High Triglycerides (mg/dL) <150 Normal 350-926Gwymovhabt-nfgg 200-499High >=500Very high HDL Cholesterol (mg/dL) <40Low (male) <40Low (female) LDL Cholesterol (mg/dL) <100 Optimal 100-129Near or above optimal 734-921Ixedhqashp-tfrf 160-189High >=190Very high Risk Catergories that modify LDL goals. Risk CatergoriesLDL goal (mg/dL) CHD and CHD risk equivalent<100 (10-year risk >20%) Multiple (2+) risk factors <130 (10-year risk=<20%) 0-1 risk factors <160 (<10-year risk) Defining levels of lipids in metabolic syndrome Triglycerides>=150 mg/dL HDL Cholesterol Men<40 mg/dL Women<40 mg/dL Non-HDL cholesterol is a second target for therapy in persons with high triglycerides (>=200 mg/dL) Specimen Plasma specimen Performing Organization Address City/[facility]/Zipcode Phone Number [facility] DEPARTMENT OF PATHOLOGY AND [address] [place] [address] GENOMIC MEDICINE ECG 12 lead (06/09/2018 11:07 AM CDT) Ventricular rate 80 [facility] Atrial rate 80 [facility] TX interval 158 [facility] QRSD interval 76 [facility] QT interval 394 [facility] QTC interval 454 [facility] P axis 1 71 [facility] QRS axis 1 62 [facility] MUSE T wave axis 60 [facility] MUSE EKG impression Normal sinus [facility] M[facility] rhythm-Possible Left atrial enlargement-Borderline ECG-No previous ECGs available-Electronicall y Signed By Xu Lynn MD ([id number]) on 06/10/2018 1:47:47 PM Specimen Performing Organization Address [facility] Phone Number [facility] [address] [place] [address] after 03/11/2018 Advance Directives Patient has advance care planning documents, and code status on file. For more information, please contact:Olivier Navarrete[address] [place] [address] Code Status Date Activated Date Inactivated Comments Full Code 06/09/2018 3:44 AM 06/14/2018 5:56 PM Code Status decision reached by: Patient
--- OUTSIDE RECORDS SUMMARY | 2019-03-12 10:52 | XMS REPORT | Encounter Summary ---
:1990 Author Care Team Providers Name Role Phone Darian Galaviz MD Primary Care Provider [phone] Reason for Visit Follow Up Visit Instructions 1. Acute tonsillitis tonsillitis: care instructions rapid strep group A, throat Zithromax Z-Johnson 250 mg tablet 2. Feeling stressed Trileptal 300 mg tablet gabapentin 100 mg capsule 3. Nausea and vomiting promethazine 25 mg tablet 4. Closed injury of head 5. Postconcussion syndrome 6. Scalp psoriasis fluocinonide 0.05 % topical solution Discussion Note: None recorded. Plan of Care Reminders Provider Appointments None recorded. Lab Rapid Strep 12/07/2018 In-House Results Group a, Throat Referral None recorded. Procedures None recorded. Surgeries None recorded. Imaging None recorded. Medications Name Start Date fluocinonide 0.05 % topical solution APPLY SOLUTION TOPICALLY TO AFFECTED AREA TWICE DAILY gabapentin 100 mg capsule Take 1 capsule 3 times a day by oral route. hydroxyzine HCl 10 mg tablet Take by oral route. promethazine 25 mg tablet Take 1 tablet every 4 hours by oral route as needed. Trileptal 300 mg tablet Take 1 tablet twice a day by oral route. Zithromax Z-Johnson 250 mg tablet TAKE 2 TABLETS (500 MG) BY ORAL ROUTE ONCE DAILY FOR 1 DAY THEN 1 TABLET (250 MG) BY ORAL ROUTE ONCE DAILY FOR 4 DAYS take for infection of tonsils Medications Administered None recorded. Vitals Height Weight BMI Blood Pressure 64 in 118 lbs 20.3 kg/m2 104/72 mm[Hg] Lab Results None recorded. 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 Social History Smoking Status Former Smoker Past Encounters 12/07/2018 Acute Tonsillitis; Feeling Stressed; Nausea and Vomiting; Closed Injury of Head ; Postconcussion Syndrome; Scalp Psoriasis Darian Galaviz MD: [address] [place] [address], [address], [place] [address], Ph. [phone] History of Present Illness Note: CC sore throat <div>hpi pt has been sick x 2 days, has problems with strep throat in the past, 2 x last yr</div><div>ros</div> <div>gen healthy</div><div>heent above</div><div> cv neg</div>Review of Systems: ROS as noted in the HPI Review of Systems None recorded. Physical Exam Dr. Galaviz Brief Adult Exam - M/F Reported By: Patient Constitutional: General Appearance: healthy-appearing, well-nourished, well-developed. Level of Distress: mild distress, acutely ill. Ambulation: ambulating normally ENMT: Ears: no lesions on external ear, EACs clear, TMs clear, TM mobility normal. Nose: nares patent, nasal passages clear. Oropharynx: moist mucous membranes, tonsils not enlarged, erythema, exudates Lungs: Auscultation: breath sounds normal, good air movement, CTA except as noted, no wheezing, no rales/crackles, no rhonchi Cardiovascular: Heart Auscultation: RRR, no rubs, no gallops
--- OUTSIDE RECORDS SUMMARY | 2019-03-12 10:52 | XMS REPORT | Clinical Summary ---
:1990 Author Organization [facility] Address [address] [place] [address] Care Team Providers Name Role Phone Unavailable Primary Care Provider Unavailable Allergies No Known Allergies Medications Medication Sig Dispensed Refills Start Date End Date Status sertraline (ZOLOFT) Take 1 tablet by 7 tablet 1 06/05/2018 Active 50 mg mouth daily. tabletIndications: Other depression, Adjustment disorder with mixed disturbance of emotions and conduct hydrOXYzine (ATARAX) Take 1 tablet by 14 tablet 1 06/05/2018 06/15/2018 25 mg mouth 3 times tabletIndications: daily as needed Other depression, for up to 10 Adjustment disorder days for Anxiety with mixed or Insomnia. disturbance of emotions and conduct Active Problems Problem Noted Date Suicidal behavior with attempted self-injury Diphenhydramine overdose, intentional self-harm, initial encounter Current severe episode of major depressive disorder without psychotic features without prior episode Adjustment disorder with mixed disturbance of emotions and conduct Depression Encounters Date Type Specialty Care Team Description 06/03/2018 - Emergency Emergency Medicine [facility], Suicidal ideation (Primary Dx); 06/05/2018 Grace Richmond MD Suicidal behavior with attempted self-injury; Elizabet Darling MD Diphenhydramine overdose, intentional self-harm, initial encounter; Current severe episode of major depressive disorder without psychotic features without prior episode; Other depression; Adjustment disorder with mixed disturbance of emotions and conduct after 03/11/2018 Social History Tobacco Use Types Packs/Day Years Used Date Current Every Day Smoker Alcohol Use Drinks/Week oz/Week Comments Yes Sex Assigned at Date Recorded Not on file Job Start Date Occupation Industry Not on file Not on file Not on file Travel History Travel Start Travel End No recent travel history available. Last Filed Vital Signs Vital Sign Reading Time Taken Comments Blood Pressure 120/86 06/05/2018 12:49 PM CDT Pulse 91 06/05/2018 12:49 PM CDT Temperature 36.7 C (98.1 F) 06/05/2018 12:49 PM CDT Respiratory Rate 20 06/05/2018 12:49 PM CDT Oxygen Saturation 97% 06/05/2018 12:49 PM CDT Inhaled Oxygen Concentration - - Weight - - Height - - Body Mass Index - - Plan of Treatment Health Maintenance Due Date Last Done Comments Cervical Cancer Scrn (3 Yrs) 2011 IMM Influenza Seasonal Jul to December (>/=19 yrs) 07/09/2019 Procedures Procedure Name Priority Date/Time Associated Comments Diagnosis CONSULT CLINICAL CASE STAT 06/05/2018 12:07 MANAGEMENT (RN/SW) PM CDT CONSULT CLINICAL CASE STAT 06/04/2018 5:04 MANAGEMENT (RN/SW) AM CDT SOCIAL WORK CASE Routine 06/03/2018 4:50 SENIOR NET PROGRAMMER PM CDT TROPONIN I POC Routine 06/03/2018 4:02 Results for this PM CDT procedure are in the results section. POCT URINE DIPSTICK - STAT 06/03/2018 3:59 Results for this PM CDT procedure are in the results section. URINE DRUG SCREEN STAT 06/03/2018 3:55 Results for this PM CDT procedure are in the results section. URINALYSIS STAT 06/03/2018 3:55 Results for this PM CDT procedure are in the results section. MAGNESIUM Routine 06/03/2018 3:30 Results for this PM CDT procedure are in the results section. LIVER PROFILE STAT 06/03/2018 3:30 Results for this PM CDT procedure are in the results section. CBC/DIFF STAT 06/03/2018 3:30 Results for this PM CDT procedure are in the results section. SALICYLATE STAT 06/03/2018 3:30 Results for this PM CDT procedure are in the results section. ACETAMINOPHEN STAT 06/03/2018 3:30 Results for this PM CDT procedure are in the results section. BMP POC Routine 06/03/2018 3:29 Results for this PM CDT procedure are in the results section. after 03/11/2018 Results TROPONIN I POC (06/03/2018 4:02 PM CDT) Troponin POC 0.01 0.00 - 0.08 ng/mL BT [facility] 1 Specimen Performing Organization Address City/State/Zipcode Phone Number [facility] 1 POCT URINE DIPSTICK - (06/03/2018 3:59 PM CDT) Pathologist [facility] Control PASS NEG UA CHEMISTRIES (06/03/2018 3:55 PM CDT) Pathologist [facility] Color Yellow BT [facility] 3 Clarity Clear BT [facility] 3 Specific [place] 1.023 1.001 - 1.035 BT [facility] 3 pH 5.0 5 - 8 BT MAIN[facility] 3 Protein 1+ (A) NEG BT MAIN-ST[facility] 3 Glucose Negative NEG BT MAIN[facility] 3 Ketones 1+ (A) NEG BT MAIN-STATION 3 Bilirubin Negative NEG BT [facility]IN-[facility] 3 Nitrate Negative NEG BT [facility] 3 Urobilinogen,Semi-Qn <1.0 0.2 - 1.0 EU/dL BT [facility] 3 Leukocyte Trace (A) NEG BT [facility]IN[facility] 3 Occult Blood 3+ (A) NEG BT MAIN[facility] 3 RBC 142 (H) 0 - 4 /HPF BT [facility] 3 WBC 4 0 - 5 /HPF BT [facility] 3 Epithelial Cell 1 /HPF BT [facility]IN[facility] 3 Mucous Present BT [facility] 3 Specimen Urine Performing Organization Address City/State/Zipcode Phone Number [facility] 3 URINE DRUG SCREEN (06/03/2018 3:55 PM CDT) Pathologist [facility] Amphetamine Negative NEG BT MAIN-STATION 1 Comment: Calibrated Standard: D-Methamphetamine Positive if urine level >ou=9915 ng/mL Test performed on [id number] using EMIT Immunoassay Barbiturate Negative NEG BT MAIN-STATION 1 Comment: Calibrated Standard: Secobarbital Positive if urine level is >jm=682 ng/mL Test performed on [id number] using EMIT Immunoassay Benzodiazepine Negative NEG BT MAIN-STATION 1 Comment: Calibrated Standard: Lormethazepam Positive if urine level is >qx=885 ng/mL Test performed on [id number] using EMIT Immunoassay Cannabinoid Positive (A) NEG BT MAIN-STATION 1 Comment: Calibrated Standard: 11 nor-delta(9)-THC carboxylic a Positive if urine level >or=50 Test performed on [id number] using EMIT Immunoassay Cocaine Negative NEG BT MAIN-STATION 1 Comment: Calibrated Standard: Benzoylecgonine Positive if urine level >bq=214 Test performed on [id number] using EMIT Immunoassay Opiate, Ur Negative NEG BT MAIN-STATION 1 Comment: Calibrated Standard: Morphine Positive if urine level >ns=076 Test performed on [id number] using EMIT Immunoassay PCP Negative NEG BT MAIN-STATION 1 Comment: Calibrated Standard: Phencyclidine Positive if urine level >or=25 Test performed on [id number] using EMIT Immunoassay Urine Toxicology Screen results are to be used only for Medical purposes. Specimen Urine Performing Organization Address [facility] Phone Number [facility] 1 SALICYLATE (06/03/2018 3:30 PM CDT) Salicylate <2.5 (L)Comment: Test 2.8 - 30 mg/dL BT MAIN-STATION 1 performed on [id number] using EMIT Immunoassay Specimen Blood Performing Organization Address [facility] [place] Phone Number [facility] 1 MAGNESIUM (06/03/2018 3:30 PM CDT) Magnesium 2.1 1.9 - 2.7 mg/dL BT MAIN-STATION 1 Specimen Performing Organization Address [facility] [place] Phone Number [facility] 1 LIVER PROFILE (06/03/2018 3:30 PM CDT) Protein, Total, Serum 7.4 6.0 - 8.3 g/dL BT [facility] 1 Albumin 5.0 3.7 - 5.3 g/dL BT MA[facility] 1 Bilirubin, Total 1.2 0.2 - 1.2 mg/dL BT MAIN[facility] 1 Alkaline Phosphatase, S 82 34 - 104 U/L BT MAIN-STATION 1 AST (SGOT) 17 13 - 39 U/L BT MAIN-STATION 1 ALT 19 7 - 52 U/L BT MAIN-STATION 1 D Bilirubin 0.2 0.0 - 0.2 mg/dL BT MAIN[facility]STATION 1 Specimen Performing Organization Address [facility] [place] Phone Number [facility] 1 CBC/DIFF (06/03/2018 3:30 PM CDT) WBC 11.8 (H) 4.5 - 11.0 K/uL BT MAIN-STATION 2 RBC 4.84 4.20 - 5.40 BT MAIN-STATION 2 M/uL Hemoglobin 14.9 12.0 - 16.0 BT MAIN-STATION 2 g/dL Hematocrit 44.1 37.0 - 47.0 % BT MAIN-STATION 2 MCV 91 82 - 92 fL BT MAIN-[facility]ATION 2 MCH 30.8 27.0 - 32.0 pg BT MAIN-STATION 2 MCHC 33.8 32.0 - 36.0 BT MAIN-STATION 2 g/dL RDW 40.3 36.4 - 46.3 fL BT MAIN-STATION 2 Platelets 228 150 - 400 K/uL BT MAIN-STATION 2 Mean Platelet Volume 13.3 (H) 9.4 - 12.4 fL BT MAIN-STATION 2 Percent NRBC 0.0 BT MAIN-STATION 2 Absolute NRBC 0.00 BT MAIN-STATION 2 Neutrophils 77.1 (H) 34.0 - 70.0 % BT MAIN-STATION 2 Lymphs 17.2 (L) 20.0 - 50.0 % BT MAIN-STATION 2 Monocytes 4.8 (L) 5.0 - 12.0 % BT MAIN-STATION 2 Eos 0.2 (L) 0.7 - 5.0 % BT MAIN-STATION 2 Basos 0.3 0.1 - 1.2 % BT MAIN-STATION 2 Immature Granulocytes 0.4 0.0 - 0.5 BT MAIN-STATION 2 Neutrophils (Absolute) 9.08 (H) 1.56 - 6.13 BT MAIN-STATION 2 K/uL Lymphs (Absolute) 2.03 1.18 - 3.74 BT MAIN-STATION 2 K/uL Monocytes(Absolute) 0.57 (H) 0.24 - 0.36 BT MAIN-STATION 2 K/uL Eos (Absolute) 0.02 (L) 0.04 - 0.36 BT MAIN-STATION 2 K/uL Baso (Absolute) 0.04 0.01 - 0.08 BT MAIN-STATION 2 K/uL Immature Grans (Abs) 0.05 (H) 0.00 - 0.03 BT MAIN-STATION 2 K/uL Specimen Performing Organization Address [facility] Phone Number [facility] 2 ACETAMINOPHEN (06/03/2018 3:30 PM CDT) Acetaminophen <10.00 (L)Comment: 10 - 30 ug/mL BT MAIN-STATION 1 Test performed on [id number] using EMIT Immunoassay Specimen Blood Performing Organization Address [facility] Phone Number [facility] 1 BMP POC (06/03/2018 3:29 PM CDT) CO2 POC 23 21 - 32 mmol/L BT MAIN[facility]STATION 1 Chloride POC 105 98 - 107 mmol/L BT [facility]IN[facility] 1 Potassium POC 3.7 3.50 - 5.10 BT MAIN-STATION 1 mmol/L Sodium POC 140 136 - 145 mmol/L BT [facility]IN-[facility]ATION 1 Glucose POC 102 74 - 106 mg/dL BT [facility] 1 Urea Nitrogen POC 13 7 - 18 mg/dL BT [facility] 1 Creatinine POC 0.6 0.6 - 1.3 mg/dL BT [facility]IN[facility] 1 Calcium Ionized POC 1.10 (L) 1.15 - 1.29 BT MAIN-STATION 1 mmol/L Hemoglobin POC 16.0 12.0 - 16.0 g/dL BT MAIN-STATION 1 Hematocrit POC 47.0 37.0 - 47.0 % BT [facility]IN-STATION 1 GFR, Estimated >60 mL/min/1.73 m2 BT [facility]IN[facility]STATION 1 GFR, Estim, Afr-Am >60 mL/min/1.73 m2 BT [facility]IN[facility] 1 Specimen Performing Organization Address City/State/Zipcode Phone Number [facility] 1 after 03/11/2018 Insurance Payer Benefit Plan / Subscriber ID Effective Dates Phone Address Type Group [employer] SELF-PAY xxxxxxxxx 2018-Prese [phone] [address] SELF-PAY UNSCREENED [address] [place] [address]
[2019-03-12 11:06] LABS: Absolute Lymphocytes (CBC) 1.3 K/uL (0.7-4.9); Absolute Monocytes 0.5 K/uL (0.1-1.3); Absolute Neutrophil 4.5 K/uL (1.8-8.0); Basophils % 0.4 % (0-1.3); Eosinophils % 0.4 % (0-4.4); Hematocrit 41.3 % (36.0-45.0); Lymphocytes % 20.3 % (15.3-44.8); MPV 9.8 fL (7.6-11.3); Monocytes % 7.3 % (3.3-12.3); RBC Red Blood Cell Count 4.44 M/uL (3.86-4.86)
[2019-03-12 11:44] LABS: ALT/SGPT 27 U/L (12-78); AST/SGOT 16 U/L (15-37); Albumin 4.2 g/dL (3.4-5.0); Alkaline Phosphatase 66 U/L (45-117); BUN Blood Urea Nitrogen 8 mg/dL (7-18); Bicarbonate 25 mmol/L (21-32); Bilirubin Total 0.5 mg/dL (0.2-1.0); Glucose Level 87 mg/dL (74-106); HCG, Quantitative 49382 mIU/mL (1-3); Potassium 3.8 mmol/L (3.5-5.1); Protein, Total 7.4 g/dL (6.4-8.2); Sodium Level 136 mmol/L (136-145)
[2019-03-12 12:04] LABS: Urine Blood NEGATIVE (NEG); Urine Glucose NEGATIVE (NEG); Urine Protein TRACE (NEG); Urine pH 7.5 (5.0-7.0)
--- NOTE | 2019-03-12 12:27 | ER ---
Nurse's Notes [facility] Name: Alexandra Ambrosio Age: 28 yrs Sex: Female : 1990 Arrival Date: 03/12/2019 Time: 10:09 Bed 16 Private MD: Diagnosis: Nausea and vomiting;1st Trimester Presentation: 03/12 10:18 Presenting complaint: Patient states: for the past week i have been real dizzy, and my tw2 joints hurt when im sleeping, i have had a headache and i am nauseous, i have a dr. appt Monday but i dont feel right i dont think i can make it to the appt, fatigued feeling, +cough. Transition of care: patient was not received from another setting of care. Onset of symptoms was March 12, 2019. Risk Assessment: Do you want to hurt yourself or someone else? Patient reports no desire to harm self or others. Initial Sepsis Screen: Does the patient meet any 2 criteria? No. Patient's initial sepsis screen is negative. Does the patient have a suspected source of infection? No. Patient's initial sepsis screen is negative. Care prior to arrival: None. 10:18 Method Of Arrival: Ambulatory tw2 10:18 Acuity: MELINDA 3 tw2 10:20 Note i am just really stressed out right now i am going through a divorce. tw2 Triage Assessment: 10:21 General: Appears in no apparent distress. slender, Behavior is calm, cooperative, tw2 appropriate for age. Pain: Complains of pain in abdomen and headache. GI: Reports nausea. 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 - Social history:: Smoking status: Smoking status: Patient uses tobacco products, i use a vape, 5% nicotine. - Ebola Screening: : Patient denies travel to an Ebola-affected area in the 21 days before illness onset. Screenin:26 Abuse screen: Denies threats or abuse. Nutritional screening: No deficits noted. tw2 Tuberculosis screening: No symptoms or risk factors identified. Fall Risk None identified. Assessment: 10:30 General: Appears uncomfortable, slender, Behavior is anxious, quiet. Pain: Complains of ae4 pain in head and back of head. Neuro: Level of Consciousness is awake, alert, obeys commands, Oriented to person, place, time, situation, Appropriate for age. Cardiovascular: Heart tones S1 S2 present Patient's skin is warm and dry. Respiratory: Airway is patent Respiratory effort is even, unlabored, Respiratory pattern is regular, symmetrical, Breath sounds are clear bilaterally. GI: Abdomen is flat, non-distended, Bowel sounds present X 4 quads. Abd is soft and non tender. : No signs and/or symptoms were reported regarding the genitourinary system. EENT: No signs and/or symptoms were reported regarding the EENT system. Derm: Skin is pale. Musculoskeletal: Reports Feeling of overall weakness "just don't want to get out of bed. 10:30 Neuro: Reports History of suicide attempt in the previous year.. ae4 12:25 Reassessment: Patient is resting in bed, updated on plan of care. ae4 Vital Signs: 10:20 BP 126 / 84; Pulse 93; Resp 18; Temp 99.1(TE); Pulse Ox 99% on R/A; Weight 59.24 kg tw2 (M); Height 5 ft. 6 in. (167.64 cm); Pain 4/10; 12:26 BP 111 / 80; Pulse 65; Resp 16; Pulse Ox 100% on R/A; ae4 10:20 Body Mass Index 21.08 (59.24 kg, 167.64 cm) tw2 ED Course: 10:09 Patient arrived in ED. mr 10:09 Jai Chu MD is Attending Physician. ps1 10:19 Triage completed. tw2 10:19 Arm band placed on. tw2 10:25 Bed in low position. Call light in reach. Pulse ox on. NIBP on. tw2 10:26 Tl Pompa RN is Primary Nurse. ae4 10:52 Initial lab(s) drawn, by me, sent to lab. Inserted saline lock: 20 gauge in right kj1 antecubital area, using aseptic technique. forearm, using aseptic technique. 12:15 Matter Eval Tm 1 In Process Unspecified. EDMS 12:59 No provider procedures requiring assistance completed. IV discontinued, intact, ae4 bleeding controlled, No redness/swelling at site. Pressure dressing applied. Administered Medications: No medications were administered Outcome: 12:27 Discharge ordered by . ps1 12:59 Condition: stable ae4 12:59 Discharge instructions given to patient, Instructed on discharge instructions, follow up and referral plans. medication usage, Demonstrated understanding of instructions, Prescriptions given X 2. 12:59 Discharged to home ambulatory. ae4 13:00 Patient left the ED. ae4 Signatures: Dispatcher [employer] EDCO Kiera Uribe mr Catrina Johns, RN RN tw2 Jai Chu MD MD ps1 Munira Juarez kj1 Tl Pompa, RN RN ae4
--- NOTE | 2019-03-12 12:28 | EDPHYS ---
Physician Documentation [facility] Name: Alexandra Ambrosio Age: 28 yrs Sex: Female : 1990 Arrival Date: 03/12/2019 Time: 10:09 Bed 16 Private MD: ED Physician Jai Chu HPI: 03/12 10:40 This 28 yrs old Female presents to ER via Ambulatory with complaints of ps1 Dizziness, Vomiting. 10:40 patient states symptoms have been going on for a week. Additionally associated with ps1 joint leach. Pt has a history of Psych issues and is on gabapentin, Prozac, and Trileptal. States that she is going through a divorce for months and is not sexually active with her ex. She states that her symptoms are worse at night, mostly nausea with some abdominal cramping. No fever. . 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 - Social history:: Smoking status: Smoking status: Patient uses tobacco products, i use a vape, 5% nicotine. - Ebola Screening: : Patient denies travel to an Ebola-affected area in the 21 days before illness onset. ROS: 10:40 Constitutional: Negative for fever, chills, and weight loss, Eyes: Negative for injury, ps1 pain, redness, and discharge, ENT: Negative for injury, pain, and discharge, Cardiovascular: Negative for chest pain, palpitations, and edema, Respiratory: Negative for shortness of breath, cough, wheezing, and pleuritic chest pain, Skin: Negative for injury, rash, and discoloration, Neuro: Negative for headache, weakness, numbness, tingling, and seizure. 10:40 Abdomen/GI: Positive for nausea and vomiting. 10:40 MS/extremity: Positive for joint pain, no rash or edema. Exam: 10:40 Constitutional: This is a well developed, well nourished patient who is awake, alert, ps1 and in no acute distress. Head/Face: Normocephalic, atraumatic. Eyes: Pupils equal round and reactive to light, extra-ocular motions intact. Lids and lashes normal. Conjunctiva and sclera are non-icteric and not injected. Chest/axilla: Normal chest wall appearance and motion. Nontender with no deformity. No lesions are appreciated. Cardiovascular: Regular rate and rhythm. No gallops, murmurs, or rubs. Normal PMI, no JVD. No pulse deficits. Respiratory: Lungs have equal breath sounds bilaterally, clear to auscultation and percussion. No rales, rhonchi or wheezes noted. No increased work of breathing, no retractions or nasal flaring. Abdomen/GI: Soft, non-tender, with normal bowel sounds. No distension or tympany. No guarding or rebound. No evidence of tenderness throughout. Skin: Warm, dry with normal turgor. Normal color with no rashes, no lesions, and no evidence of cellulitis. MS/ Extremity: Pulses equal, no cyanosis. Neurovascular intact. Full, normal range of motion. Neuro: Awake and alert, GCS 15, oriented to person, place, time, and situation. Cranial nerves II-XII grossly intact. Sensory grossly intact. Vital Signs: 10:20 BP 126 / 84; Pulse 93; Resp 18; Temp 99.1(TE); Pulse Ox 99% on R/A; Weight 59.24 kg tw2 (M); Height 5 ft. 6 in. (167.64 cm); Pain 4/10; 12:26 BP 111 / 80; Pulse 65; Resp 16; Pulse Ox 100% on R/A; ae4 10:20 Body Mass Index 21.08 (59.24 kg, 167.64 cm) tw2 MDM: 10:55 Patient medically screened. ps1 12:24 Data reviewed: vital signs, nurses notes, lab test result(s), radiologic studies, ps1 ultrasound, and as a result, I will discharge patient, administer antibiotics keflex. ED course: 6w4d IUP FHR 115. Pt to follow up with SCENARIO WRITER. Home with keflex for possible UTI. Stable for discharge. . 03/12 10:34 Order name: Urine Dipstick--Ancillary (enter results); Complete Time: 12:15 bd 03/12 10:34 Order name: Urine --Ancillary (enter results); Complete Time: 12:15 bd 03/12 10:40 Order name: Quantitative Hcg; Complete Time: 11:46 ps1 03/12 10:40 Order name: Abo/rh Typing; Complete Time: 11:39 ps1 03/12 10:40 Order name: CBC with Diff; Complete Time: 11:27 ps1 03/12 10:40 Order name: CMP; Complete Time: 11:46 ps1 03/12 10:40 Order name: IV Saline Lock; Complete Time: 10:53 ps1 03/12 10:40 Order name: Labs collected and sent; Complete Time: 10:53 ps1 03/12 10:40 Order name: NPO; Complete Time: 10:49 ps1 03/12 10:40 Order name: Urine Dipstick-Ancillary (obtain specimen); Complete Time: 10:49 ps1 03/12 11:52 Order name: Labs collected and sent; Complete Time: 12:05 bd 03/12 12:13 Order name: Matter Eval Tm 1; Complete Time: 12:31 EDMS 03/12 12:47 Order name: ABO/RH no charge; Complete Time: 12:51 EDMS Administered Medications: No medications were administered Disposition: 03/12/19 12:27 Discharged to Home. Impression: Nausea and vomiting, 1st Trimester . - Condition is Stable. - Discharge Instructions: Nausea and Vomiting, Adult, First Trimester of . - Prescriptions for Diclegis 10- 10 mg Oral tablet,delayed release (DR/EC) - take 2 tablet by ORAL route once daily; 30 tablet. Keflex 500 mg Oral Capsule - take 1 capsule by ORAL route every 8 hours for 10 days; 30 capsule. - Medication Reconciliation Form, Thank You Letter, Antibiotic Education, Prescription Opioid Use form. - Follow up: Private Physician; When: 1 week; Reason: Recheck today's complaints, Continuance of care, Re-evaluation by your physician. Follow up: Emergency Department; When: As needed; Reason: Worsening of condition. - Problem is new. - Symptoms are unchanged. Signatures: Dispatcher [employer] EDMS Alisa Barrientos Tara, RN RN tw2 Jai Chu MD MD ps1 Tl Pompa, RN RN ae4 Corrections: (The following items were deleted from the chart) 12:13 11:48 OB Limited+US.RAD.BRZ ordered. EDMS EDMS 13:00 12:27 03/12/2019 12:27 Discharged to Home. Impression: Nausea and vomiting; 1st ae4 Trimester . Condition is Stable. Forms are Medication Reconciliation Form, Thank You Letter, Antibiotic Education, Prescription Opioid Use. Follow up: Private Physician; When: 1 week; Reason: Recheck today's complaints, Continuance of care, Re-evaluation by your physician. Follow up: Emergency Department; When: As needed; Reason: Worsening of condition. Problem is new. Symptoms are unchanged. ps1
--- NOTE | 2019-03-12 12:28 | RAD REPORT ---
EXAM DESCRIPTION: US - Matter Merryal Tm 1 - 03/12/2019 12:11 pm CLINICAL HISTORY: ABD CRAMPING, COMPARISON: OBSTETRICAL COMPLETE dated 10/20/2014OBSTETRICAL COMPLETE dated 10/20/2014 FINDINGS: A single gestational sac is seen within the uterus. The shape of the sac is within normal limits for gestational age. Within the sac is a single pole with crown-rump length of 7 mm, cor relating to estimated gestational age of 6 weeks 4 days. Estimated date of delivery is 11/01/2019. Heart rate is 150 BPM. The placenta is not yet developed due to early gestational age. The maternal adnexa and ovaries are within normal limits. Normal Doppler blood flow was demonstrated to both ovaries. IMPRESSION: Single live early intrauterine gestation with estimated gestational age of 6 weeks 4 day s, PAULA 11/01/2019. No unusual or unexpected finding.
[2019-03-12 13:21] VITALS: TEMP 99.1
[2019-03-12 13:22] VITALS: BP 111/80; O2SAT 100
== END 2019-03-12 13:00 | disposition home or self-care (01) ==
LOC: ER 10:04
DX: O21.0 Mild hyperemesis gravidarum (principal); O99.341 Other mental disorders complicating pregnancy, first trimester; O99.331 Smoking (tobacco) complicating pregnancy, first trimester; Z3A.01 Less than 8 weeks gestation of pregnancy
CPT/HCPCS: 36415; 76801; 80053; 81003; 81025; 84702; 85025; 86900; 86901; 99284

== ENCOUNTER 2020-02-24 08:08 | Emergency (ER) | payer OTHER ==
[2020-02-24 08:53] LABS: Urine Blood NEGATIVE (NEG); Urine Glucose NEGATIVE (NEG); Urine Protein TRACE (NEG); Urine pH 8.5 (5.0-7.0)
--- OUTSIDE RECORDS SUMMARY | 2020-02-24 08:54 | XMS REPORT | Clinical Summary ---
:1990 Author Organization [facility] Address [address] [place] [id number] Care Team Providers Name Role Phone Asked, No Pcp Primary Care Provider Unavailable Allergies No Known Allergies Medications No known medications Active Problems Problem Noted Date Alcohol use disorder, mild, abuse 06/13/2018 Cannabis use disorder, mild, abuse 06/13/2018 Severe episode of recurrent major depressive disorder, without psychotic 06/12/2018 features Family History Medical History Relation Name Comments OCD Brother Alcohol abuse Maternal Grandfather Anxiety disorder Maternal Grandfather Drug abuse Maternal Grandfather OCD Maternal Grandfather Anxiety disorder Mother Relation Name Status Comments Brother Maternal Grandfather Mother Social History Tobacco Use Types Packs/Day Years Used Date Former Smoker Cigarettes 1 04/08/2018 - 0 06/09/2018 Smokeless Tobacco: Never Used Tobacco Cessation: Counseling Given: Yes Comments: 2 months Alcohol Use Drinks/Week oz/Week Comments No Sex Assigned at Date Recorded Not on file Job Start Date Occupation Industry Not on file Not on file Not on file Travel History Travel Start Travel End No recent travel history available. 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
--- OUTSIDE RECORDS SUMMARY | 2020-02-24 08:55 | XMS REPORT | Encounter Summary ---
:1990 Author Care Team Providers Name Role Phone Darian Galaviz MD Primary Care Provider [phone] Reason for Visit Follow Up Visit Instructions 1. Cystic acne minocycline 100 mg capsule clindamycin 1 % topical ge l 2. Generalized anxiety disorder fluoxetine 20 mg tablet 3. Feeling stressed Trileptal 300 mg tablet Discussion Note: None recorded.Patient educational handouts: No information available. Plan of Care Reminders Provider Appointments Return to on or around Seun Galaviz MD Office 07/04/2019 Lab None recorded. Referral None recorded. Procedures None recorded. Surgeries None recorded. Imaging None recorded. Medications Name Start Date clindamycin 1 % topical gel APPLY A THIN LAYER TO THE AFFECTED AREA(S) BY TOPICAL ROUTE 2 TIMES PER DAY apply at night after washing face for skin infection fluocinonide 0.05 % topical solution APPLY SOLUTION TOPICALLY TO AFFECTED AREA TWICE DAILY fluoxetine 20 mg tablet Take 1 tablet every day by oral route. gabapentin 100 mg capsule Take 1 capsule 3 times a day by oral route. hydroxyzine HCl 25 mg tablet minocycline 100 mg capsule Take 1 capsule every 12 hours by oral route. take 2 a day for 2 weeks and the one daily for 2 osmel hs Tri-Sprintec (28) 0.18 mg(7)/0.215 mg(7)/0.25 mg(7)-35 mcg tablet Trileptal 300 mg tablet Take 1 tablet twice a day by oral route. Medications Administered None recorded. Vitals Height Weight BMI Blood Pressure 64 in 126 lbs 16 oz 21.8 kg/m2 119/84 mm[Hg] Lab Results None recorded. 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 Social History Tobacco Smoking Status Former Smoker Past Encounters 05/03/2019 Cystic Acne; Generalized Anxiety Disorde r; Feeling Stressed Darian Galaviz MD: [address] [place] [address], [facility] [address], [place] [address], Ph. History of Present Illness Note: CC flare up of the cystic acne<div>hpi has had sig worsening of the acne below the jaw line on both sides</div><div>CC depression</div><div>hpi [facility] [place] [facility] and needs to get refills</div><div>ros</div><div>gen meds helping her depression</div><div>cv neg</div><div>resp neg</div><div>skin above</div>Review of Systems: ROS as noted in the HPI Review of Systems None recorded. Physical Exam Notes: vs reviewed<div>gen mood goo d</div><div>skin sig acne on neck</div>
--- OUTSIDE RECORDS SUMMARY | 2020-02-24 08:55 | XMS REPORT ---
:1990 Author Organization [facility] t Address [address] [place] [address] [address]. [address] [place] [address] Care Team Providers Name Role Phone Asked, Pcp Primary Care Physician Unavailable Cesar Daniels Attending Clinician Problems Condition Condition Condition Status Onset Resolution Last Treating Co mments Source Name Details Category Date Date Treatment Clinician Date Generalize Generalize Problem Active [facility] d anxiety d Anxiety 05-03 da disorder Disorder 00:00: Medica l 00 Group Feeling Feeling Problem Active [facility] stressed Stressed 05-03 da 00:00: Medical 00 Group Cystic Cystic Problem Active [facility] acne Acne 05-03 da 00:00: Medical 00 Group Acute Acute Problem Active [facility] tonsilliti Tonsilliti 3 da s s 00:00: Medical 00 Group Scalp Scalp Problem Active [facility] psoriasis Psoriasis 3- da 00:00: Medical 00 Group Alcohol Alcohol Disease Active [facility] use use 06-13 Methodi disorder, disorder, 00:00: st mild, mild, 00 abuse abuse Cannabis Cannabis Disease Active [facility] on use use 06-13 Methodi disorder, disorder, 00:00: st mild, mild, 00 abuse abuse 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, disorder, without without psychotic psychotic features features Plaque Plaque Problem Active [facility] psoriasis Psoriasis 5-05 da 00:00: Medical 00 Group Streptococ Streptococ Problem Active [facility] daniel sore daniel Sore da throat Throat Medical Group Otitis Otitis Problem Active [facility] externa Externa [facility] Group Otitis Otitis Problem Active [facility] media Media [facility] Aphthous Aphthous Problem Active [facility] ulcer of Ulcer of da mouth [facility] Painful Painful Problem Active [facility] mouth [facility] Acute Acute Problem Active [facility] urinary Urinary da tract Tract Medical infection Infection Grou p Abscess Abscess Problem Active [facility] Injury of Injury of Problem Active [facility] ankle [facility]le [facility] Allergies, Adverse Reactions, Alerts This patient has no known allergies or adverse reactions. Family History Family Member Diagnosis Comments Start Date Stop Date Source Natural brother OCD [facility] Maternal grandfather Alcohol abuse [place] [facility] Maternal grandfather Anxiety disorder [facility] Maternal grandfather Drug abuse [place] [facility] Maternal grandfather OCD [place] [facility] Natural mother Anxiety disorder [place] [facility] Social History Social Habit Start Date Stop Date Quantity Comments Source Sex Assigned At [facility] Cigarettes smoked 2018-06-11 2018-06-11 [facility] current (pack per 00:00:00 00:00:00 day) - Reported Alcohol intake 2018-06-11 2018-06-11 Current [facility] 00:00:00 00:00:00 non-drinker of alcohol (finding) Tobacco Comment 2018-06-09 2018-06-09 2 months [facility] 00:00:00 00:00:00 History of tobacco 2018-04-08 2018-06-09 Current smoker [place] [facility] use 00:00:00 00:00:00 Smoking Status Start Date Stop Date Source Former smoker 2018-06-11 00:00:00 2018-06-11 00:00:00 [facility] Medications Ordered Filled Start Stop Current Ordering Indication Dosage Frequency Signature Comments Components Source Medication Medication Date Date Medication? Clinician (SIG) Name Name benzonatate benzonatate No 1capsul TID benzonatat [facility] 200 mg 200 mg e(s) e 200 mg da capsule capsule capsule Medica l Take 1 Take 1 Take 1 Group capsule 3 capsule 3 capsule 3 times a day times a day times a by oral by oral day by route for route for oral route 15 days. 15 days. for 15 days. ProAir HFA ProAir HFA No 2puff(s Q4H ProAir HFA [facility] 90 90 ) 90 da mcg/actuati mcg/actuati mcg/actuat Medical on aerosol on aerosol ion Kermit up inhaler inhaler aerosol Inhale 2 Inhale 2 inhaler puffs every puffs every Inhale 2 4 hours by 4 hours by puffs inhalation inhalation every 4 route. route. hours by inhalation route. Tri-Sprinte Tri-Sprinte No Tri-Sprint [place] c (28) 0.18 c (28) 0.18 ec (28) da mg(7)/0.215 mg(7)/0.215 0.18 M edical mg(7)/0.25 mg(7)/0.25 mg(7)/0.21 Group mg(7)-35 mg(7)-35 5 mcg tablet mcg tablet mg(7)/0.25 mg(7)-35 mcg tablet Zithromax Zithromax No Zithromax [facility] Z-Johnson 250 Z-Johnson 250 Z-Johnson 250 da mg tablet mg tablet mg tablet Medical TAKE 2 TAKE 2 TAKE 2 Group TABLETS TABLETS TABLETS (500 MG) BY (500 MG) BY (500 MG) ORAL ROUTE ORAL ROUTE BY ORAL ONCE DAILY ONCE DAILY ROUTE ONCE FOR 1 DAY FOR 1 DAY DAILY FOR THEN 1 THEN 1 1 DAY THEN TABLET (250 TABLET (250 1 TABLET MG) BY ORAL MG) BY ORAL (250 MG) ROUTE ONCE ROUTE ONCE BY ORAL DAILY FOR 4 DAILY FOR 4 ROUTE ONCE DAYS DAYS DAILY FOR 4 DAYS Immunizations Ordered Immunization Filled Immunization Date Status Commen Source Name Name influenza, influenza, 2019-11-04 Completed [facility] injectable, injectable, 00:00:00 Medical Grou p quadrivalent quadrivalent Vital Signs Vital Name Observation Time Observation Value Comments Source BP Diastolic 2019-11-19 00:00:00 87 mm[Hg] [facility] Height 2019-11-19 00:00:00 64 [in_i] [facility] BMI (Body Mass 2019-11-19 00:00:00 26.4 kg/m2 [facility] Group BP Systolic 2019-11-19 00:00:00 116 mm[Hg] [facility] Body Weight 2019-11-19 00:00:00 2464 [oz_av] [facility] BP Diastolic 2019-06-14 00:00:00 97 mm[Hg] [facility] Height 2019-06-14 00:00:00 64 [in_i] [facility] BMI (Body Mass 2019-06-14 00:00:00 24.1 kg/m2 [facility] Medical Index) Group BP Systolic 2019-06-14 00:00:00 124 mm[Hg] [facility] Body Weight 2019-06-14 00:00:00 2242 [oz_av] [facility] BP Diastolic 2019-05-03 00:00:00 84 mm[Hg] [facility] Height 2019-05-03 00:00:00 64 [in_i] [facility] BMI (Body Mass 2019-05-03 00:00:00 21.8 kg/m2 [facility] Medical Index) Group BP Systolic 2019-05-03 00:00:00 119 mm[Hg] [facility] Body Weight 2019-05-03 00:00:00 2032 [oz_av] [facility] BP Diastolic 2018-12-07 00:00:00 72 mm[Hg] [facility] Height 2018-12-07 00:00:00 64 [in_i] [facility] BMI (Body Mass 2018-12-07 00:00:00 20.3 kg/m2 [facility] Medical Index) Group BP Systolic 2018-12-07 00:00:00 104 mm[Hg] [facility] Body Weight 2018-12-07 00:00:00 1888 [oz_av] [facility] Procedures Procedure Date / Time Performed Performing Clinician Daphne beasley Lapapetra 2015-01-28 00:00:00 Meghann Tx dical Cholecystectomy/graph Group Plan of Care Planned Activity Planned Date Details Comments Source Future Scheduled Test 2020-05-09 INFLUENZA VACCINE [place] [facility] 00:00:00 [code = INFLUENZA VACCINE] Diagnostic Test 2019-11-19 rapid flu (A+B) [facility] Pending 00:00:00 [code = rapid flu Group (A+B)] Future Scheduled Test 2011 Screening for [place] [facility] 00:00:00 malignant neoplasm of cervix (procedure) [code = 424982740] Instructions [facility] Encounters Start End Encounter Admission Attending Care Care Encounter Source Date/Time Date/Time Type Type Clinicians Facility Department ID 2019-11-19 2019-11-19 Ana Paula [place] - [id number] [facility] 00:00:00 00:00:00 Nisa Thorne Medical Medical TELECOMMUNICATOR: [address] [place] [phone] , Ph. 2019-06-14 2019-06-14 Ana Paula [facility] [place] - [id number] [facility] 00:00:00 00:00:00 Vicente Luna Medical TELECOMMUNICATOR: [address] [place] [phone] , Ph. 2019-05-16 2019-05-16 [facility] [id number] 00:00:00 00:00:00 Kiki Guerrero CLEANING VALIDATION CONSULTANT [id number] [facility] [id number] MATERNAL [id number] & CHILD [address] [place] [address] 2019-05-03 2019-05-03 Darian Richmond MM [place] - [id number] [facility] 00:00:00 00:00:00 MD Guillaume: [facility] [address] [place] [phone] , Ph. 2018-12-07 2018-12-07 Darian Richmond MM [place] - [id number] [facility] 00:00:00 00:00:00 MD Guillaume: [address] [phone] , Ph. Results This patient has no known results.
--- OUTSIDE RECORDS SUMMARY | 2020-02-24 08:55 | XMS REPORT | Encounter Summary ---
:1990 Author Care Team Providers Name Role Phone Darian Galaviz MD Primary Care Provider [phone] Reason for Visit vomiting; diarrhea Instructions 1. Viral gastroenteritis ondansetron 4 mg disintegr ating tablet Discussion Note: None recorded.Patient educational handouts: No information available. Plan of Care Patient Instructions May return to work 24 hours after d iarrhea stops. Monitor RLQ tenderness, F/U if pain increases or fever occurs. Reminders Provider Appointments Return to on or around Seun Galaviz MD Office 07/04/2019 Lab None recorded. Referral None recorded. Procedures None recorded. Surgeries None recorded. Imaging None recorded. Medications Name Start Date fluoxetine 20 mg tablet Take 1 tablet every day by oral route. hydroxyzine HCl 25 mg tablet minocycline 100 mg capsule Take 1 capsule every 12 hours by oral route. take 2 a day for 2 weeks and the one daily for 2 osmel hs ondansetron 4 mg disintegrating tablet Take 1 tablet every 6 hours by oral route for 5 days. Tri-Sprintec (28) 0.18 mg(7)/0.215 mg(7)/0.25 mg(7)-35 mcg tablet Medications Administered None recorded. Vitals Height Weight BMI Blood Pressure 64 in 140 lbs 2 oz 24.1 kg/m2 124/97 mm[Hg] Lab Results None recorded. Allergies Code [...] Tobacco Smoking Status Former Smoker Past Encounters 06/14/2019 Viral Gastroenteritis Ana Paula Paula Liz, SOLAR TECH: [address] [place] [address], [address], [place] [address], Ph. History of Present Illness Note: Nausea, vomiting and diarrhea, stomach cramps x 2 days. Review of Systems [facility] General Adul t ROS Reported By: Patient ENMT: Ears: no difficulty hearing, no ear pain. Nose: no frequent nosebleeds, no nose/sinus pr oblems. Mouth/Throat: no sore throat, No Post Nasal Drippi ng, Constantly clearing the throat, hiccups, itching throat, (no rmal) weak voice: constant Cardiovascular: Cardiovascular: no chest benita n, no arm pain on exertion, no shortness of breath when wal marcus, no shortness of breath when lying down, no palpitations, no known heart murmur Respiratory: Respiratory: no cough, no wh eezing, no shortness of breath, no coughing up blood Gastrointestinal: Gastrointestinal: normal cornell etite, not vomiting blood, abdominal pain, vomiting; di arrhea once Genitourinary: Genitourinary: no incontinen ce, no difficulty urinating, no increased frequency Musculoskeletal: Musculoskeletal: no muscle a ches, no muscle weakness, no arthralgias/joint pain, no b ack pain, no swelling in the extremities Neurologic: Neurologic: no loss of consc iousness, no weakness, no numbness, no seizures, no dizziness, n o headaches Endocrine: Endocrine: fatigue Allergic/Immunologic: Allergy/Immunologic: no runn y nose, no sinus pressure, no itching, no hives, no freque nt sneezing Physical Exam General Adult Exam - Female Reported By: Patient Constitutional: General Appearance: healthy- appearing, well-nourished, well-developed. Level of Dis tress: NAD. Ambulation: ambulating normally Psychiatric: Insight: good judgement. Men alex Status: active and alert, normal mood, normal affect. Orienta tion: to time, to place, to person. Memory: recent memory normal , remote memory normal Head: Head: normocephalic, atrauma tic Abdomen: Inspection and Palpation: so ft, non-distended, no guarding, no masses, RLQ tenderness. Live r: non-tender, no hepatomegaly. Spleen: non-tender, no splenomegaly
--- OUTSIDE RECORDS SUMMARY | 2020-02-24 08:55 | XMS REPORT | Summary of Care ---
:1990 Author Organization [facility] Address [address] [place] [address] Care Team Providers Name Role Phone Kiki Rosario [facility] Primary Care Provider [phone] Reason for Visit Reason Comments No Show (DNKA) Encounter Details Date Type Department Care Team Description 05/16/2019 Telephone [facility]- Kiki Rosario, No Show (DNKA) [facility] [address] [phone] [facility] [phone] [place], [place] [address] [phone] Allergies No Known Allergiesdocumented as of this encounter (statuses as of 05/16/2019) Medications Medication Sig Dispensed Refills Start Date End Date Status FLUoxetine (PROZAC) 20 Take 20 mg by 0 Active mg capsule mouth daily. documented as of this encounter (statuses as of 05/16/2019) Active Problems Problem Noted Date Atypical squamous cells of undetermined significance ( ASCUS) on 04/04/2019 Papanicolaou smear of cervix Overview: Repeat cytology in 3 years per asscp rosales delines with neg hpv results Rubella non-immune status, antepartum 04/02/2019 Overview: Address pp Tobacco use in 04/01/2019 Multiparity 04/01/2019 History of anxiety 04/01/2019 History of depression 04/01/2019 Overview: Currently on prozac Supervision of high-risk 04/01/2019 Estimated Date of Delivery Comments Yes 11/01/2019 Based on last menstr ual period of 01/25/2019 (Exact Date) documented as of this encounter (statuses as of 05/16/2019) Social History Tobacco Use Types Packs/Day Years Used Date Former Smoker Cigarettes 1 10/09/2017 - 0 03/01/2019 Smokeless Tobacco: Never Used Alcohol Use Drinks/Week oz/Week Comments Not Currently Alcohol Habits Answer Date Recorded How often do you have a drink containing alcohol? Never 04/01/2019 How many drinks containing alcohol do you have on a typical Not asked day when you are drinking? How often do you have six or more drinks on one occasion? No t asked Estimated Date of Delivery Comments Yes 11/01/2019 Based on last menstr ual period of 01/25/2019 (Exact Date) Sex Assigned at Date Recorded Not on file Job Start Date Occupation Industry Not on file Not on file Not on file Travel History Travel Start Travel End No recent travel history available. documented as of this encounter Last Filed Vital Signs Not on filedocumented in this encounter Plan of Treatment Health Maintenance Due Date Last Done Comments DTaP,Tdap,and Td Vaccines (1 - 2009 Tdap) INFLUENZA VACCINE 06/09/2019 PAP SMEAR 04/01/2022 04/01/2019 PNEUMOCOCCAL 0-64 YEARS COMBINED Aged Out No longer eligible based on SERIES patient's age to complete this topic documented as of this encounter Results Not on filedocumented in this encounter Insurance Payer Benefit Plan / Subscriber ID Effective Dates Phone Addre ss Type Group [place] xxxxxxxxx 2019-Present Medicaid HEALTH PLAN - HEALTH MANAGED MEDICAID documented as of this encounter Advance Directives Name Relationship Healthcare Agent Relationship Co mmunication Moon Ambrosio Mother Primary healthcare agent Gabby Longorialisafrancois Grandparent First alternate healthcare agent
--- OUTSIDE RECORDS SUMMARY | 2020-02-24 08:55 | XMS REPORT | Encounter Summary ---
:1990 Author Care Team Providers Name Role Phone Darian Galaviz MD Primary Care Provider [phone] Reason for Visit Sick Instructions 1. Influenza-like symptoms rapid flu (A+B) 2. Acute bronchitis ProAir HFA 90 mcg/actuatio n aerosol inhaler Spacer Zithromax Z-Johnson 250 mg tab let benzonatate 200 mg capsule Discussion Note: None recorded.Patient educational handouts: No information available. Plan of Care Patient Instructions Push fluids. Rest. Reminders Provider Appointments None recorded. Lab Rapid Flu 11/19/2019 In-Hous e Results (A+B) Referral None recorded. Procedures None recorded. Surgeries None recorded. Imaging None recorded. Medications Name Start Date benzonatate 200 mg capsule Take 1 capsule 3 times a day by oral route for 15 day s. ProAir HFA 90 mcg/actuation aerosol inhaler Inhale 2 puffs every 4 hours by inhalation route. Tri-Sprintec (28) 0.18 mg(7)/0.215 mg(7)/0.25 mg(7)-35 mcg tablet Zithromax Z-Johnson 250 mg tablet TAKE 2 TABLETS (500 MG) BY ORAL ROUTE O NCE DAILY FOR 1 DAY THEN 1 TABLET (250 MG) BY ORAL ROUTE ONCE DAILY FOR 4 DAYS Medications Administered None recorded. Vitals Height Weight BMI Blood Pressure 64 in 153 lbs 16 oz 26.4 kg/m2 116/87 mm[Hg] Results Lab Results None recorded. Allergies Code Code [...] [facility] Cholecystectomy/graph Information not available Vaccine List Vaccine Type influenza, injectable, quadrivalent 11/04/20190.5 mL Social History Tobacco Smoking Status Former Smoker Past Encounters 11/19/2019 Influenza-like Symptoms; Acute Bronchiti s Ana Paula Nisa Hill, MAP EDITOR: [address] [place] [address] [address], [place] [address], Ph. History of Present Illness Note: Cough, body aches, chills, clear runny nose, coughing up yellow-green x 3 days. Review of Systems General Adult ROS Reported By: Patient Constitutional: Constitutional: no fever, no night sweats, no significant weight gain, no significant weight loss, no exercise intolerance; chills Eyes: Eyes: no dry eyes, no irrita tion, no vision change ENMT: Ears: no difficulty hearing, no ear pain. Nose: no frequent nosebleeds, no nose/sinus pr oblems. Mouth/Throat: no sore throat, no bleeding gums, no snoring, no dry mouth, no mouth ulcers, no oral abnormalitie s, no teeth problems, No Post Nasal Dripping, Constantly c learing the throat, hiccups, itching throat, (normal) wea k voice: constant Cardiovascular: Cardiovascular: no chest benita n, no arm pain on exertion, no shortness of breath when wal marcus, no shortness of breath when lying down, no palpitations, no known heart murmur Respiratory: Respiratory: no wheezing, no shortness of breath, no coughing up blood, cough Gastrointestinal: Gastrointestinal: no abdomin al pain, no vomiting, normal appetite, no diarrhea, not v omiting blood Genitourinary: Genitourinary: no incontinen ce, no difficulty urinating, no hematuria, no increased freq uency Musculoskeletal: Musculoskeletal: no muscle w eakness, no arthralgias/joint pain, no back pain, no swell ing in the extremities, muscle aches Integumentary: Skin: no abnormal mole, no j aundice, no rashes Neurologic: Neurologic: no loss of consc iousness, no weakness, no numbness, no seizures, no di zziness, no headaches Psychiatric: Psych: no depression, no sle ep disturbances, feeling safe in relationship, no alcohol abu se Endocrine: Endocrine: no fatigue Hematologic/Lymphatic: Hematologic/Lymphatic no swo llen glands, no bruising Allergic/Immunologic: Allergy/Immunologic: no sinu s pressure, no itching, no hives, no frequent sneezing, runny nose Physical Exam General Adult Exam - Female Reported By: Patient Constitutional: General Appearance: healthy- appearing, well-nourished, well-developed. Level of Dis tress: NAD, acutely ill. Ambulation: ambulating normally Psychiatric: Insight: good judgement. Men alex Status: active and alert, normal mood, normal affect. Orienta tion: to time, to place, to person. Memory: recent memory normal , remote memory normal Head: Head: normocephalic, atrauma tic Eyes: Lids and Conjunctivae: non-i njected, no discharge, no pallor. Pupils: PERRLA. Corneas: herb ssly intact. EOM: EOMI. Lens: clear. Sclerae: non-icteric. Vision : peripheral vision grossly intact ENMT: Ears: no lesions on external ear, EACs clear, TMs clear. Hearing: no hearing loss. Nose: no le sions on external nose, nares patent, no septal deviation, nasal p assages clear, no sinus tenderness, nasal discharge--rhinorrhea. Lips, Teeth, and Gums: no mouth or lip ulcers, no bleeding gums, no rmal dentition. Oropharynx: moist mucous membranes, no exudate s, tonsils not enlarged, erythema Neck: Neck: supple, trachea midlin e, no masses, FROM, no carotid bruits. Lymph Nodes: no cervical LAD , no supraclavicular LAD, no axillary LAD, no inguinal LAD. Thyroi d: no enlargement, non-tender, no nodules Lungs: Respiratory effort: no dyspn ea. Percussion: no dullness, flatness, or hyperresonance. Auscultat ion: breath sounds normal, good air movement, CTA except as note d, no wheezing, no rales/crackles, no rhonchi Cardiovascular: Apical Impulse: not displace d. Heart Auscultation: RRR, normal S1, normal S2, no murmurs, no ru bs, no gallops. Neck vessels: no carotid bruits. Pulses inclu ding femoral / pedal: normal throughout Musculoskeletal:: Motor Strength and Tone: nor mal motor strength, normal tone. Joints, Bones, and Muscles: normal movement of all extremities, no bony abnormalities, no contr actures, no malalignment, no tenderness. Extremities: no cyanosis, no edema, no varicosities, no palpable cord Neurologic: Gait and Station: normal gai t, normal station. Cranial Nerves: grossly intact. Sensation: g rossly intact. Reflexes: DTRs 2+ bilaterally throughout. Coor dination and Cerebellum: [id number] intact, no tremor Skin: Inspection and palpation: no rash, no lesions, no ulcer, no abnormal nevi, no induration , no nodules, good turgor, no jaundice. Nails: normal Back: Thoracolumbar Appearance: no rmal curvature
[2020-02-24 08:59] LABS: Absolute Lymphocytes (CBC) 1.6 K/uL (0.7-4.9); Basophils % 0.5 % (0-1.3); Hematocrit 43.3 % (36.0-45.0); Lymphocytes % 22.7 % (15.3-44.8); MPV 10.2 fL (7.6-11.3); RBC Red Blood Cell Count 4.67 M/uL (3.86-4.86)
[2020-02-24] MEDS ORDERED: MEPERIDINE HCL 25 MG/0.5 ML ONE ×2 (09:01→09:52)
[2020-02-24] MEDS ORDERED: dexAMETHasone 10 MG/ML VIAL ONE (09:01)
[2020-02-24 09:23] LABS: Potassium 3.8 mmol/L (3.5-5.1)
--- NOTE | 2020-02-24 09:34 | RAD REPORT ---
EXAM DESCRIPTION: RAD - Chest Pa And Lat (2 Views) - 02/24/2020 9:11 am CLINICAL HISTORY: mid scapular pain, worse with breathing COMPARISON: None TECHNIQUE: Frontal and lateral views of the chest were obtained. FINDINGS: The lungs are clear. No mediastinal or hilar mass or lymphadenopathy suspected. Patient h as a mild pectus deformity. Heart size is normal and central vasculature is within normal limits. No pleural effusion or pneumothorax seen. No acute bone finding. Mild scoliotic curvature at the thora columbar junction. No aortic abnormality. IMPRESSION: No acute cardiopulmonary process.
--- NOTE | 2020-02-24 09:35 | RAD REPORT ---
EXAM DESCRIPTION: RAD - Thoracic Spine Ap/Lat - 02/24/2020 9:23 am CLINICAL HISTORY: PAIN COMPARISON: Chest Pa And Lat (2 Views) dated 02/24/2020 FINDINGS: AP & lateral views of the thoracic spine were obtained. Thoracic bodies are normal in height except for a very minimal loss in height along the left lateral margin of T11. Small ribs are present at T12. The patient has a mild right convex scoliotic curvature at the thoracolumbar junction. This dextroscoliosis could explain the minimal height loss along the left lateral margin of T11. No paraspinal mass. There are no acute or destructive bony processes seen . No disc space narrowing. IMPRESSION: Negative thoracic spine examination for acute finding. Mild dextroscoliosis at the thoracolumbar junction.
--- NOTE | 2020-02-24 10:09 | ER ---
Nurse's Notes [facility] Name: Alexandra Ambrosio Age: 29 yrs Sex: Female : 1990 Arrival Date: 02/24/2020 Time: 08:12 Bed 19 Private MD: Diagnosis: Muscle spasm of back;Back pain Presentation: 02/23 08:20 Chief complaint: Patient states: mid back pain that began this morning, became worse ss after lifting a heavy item at work. Coronavirus screen: Proceed with normal triage. Patient denies a cough. Patient denies shortness of breath or difficulty breathing. Patient denies measured and/or subjective temperature greater than 100.4F prior to today's visit. Patient denies travel on a cruise ship or to a country the [facility] currently lists as an affected area. Patient denies contact with known and/or suspected case of COVID-19. Ebola Screen: Patient denies exposure to infectious person. Patient denies travel to an Ebola-affected area in the 21 days before illness onset. Initial Sepsis Screen: Does the patient meet any 2 criteria? No. Patient's initial sepsis screen is negative. Does the patient have a suspected source of infection? No. Patient's initial sepsis screen is negative. Risk Assessment: Do you want to hurt yourself or someone else? Patient reports no desire to harm self or others. Onset of symptoms was February 24, 2020. 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 - Social history:: Smoking status: Patient denies any tobacco usage or history of. - Family history:: not pertinent. - Hospitalizations: : No recent hospitalization is reported. Screenin:17 Abuse screen: Denies threats or abuse. Nutritional screening: No deficits noted. tw2 Tuberculosis screening: No symptoms or risk factors identified. Fall Risk None identified. Assessment: 08:20 General: Appears uncomfortable, slender, well groomed, Behavior is cooperative, tw2 appropriate for age, anxious. Pain: Complains of pain in back and chest. Neuro: Level of Consciousness is awake, alert, obeys commands, Oriented to person, place, time, situation. Cardiovascular: Heart tones S1 S2 Patient's skin is warm and dry. Respiratory: Reports pain with movement pain with respiration Airway is patent Respiratory effort is even, unlabored, Respiratory pattern is regular, symmetrical, Breath sounds are clear bilaterally. GI: No signs and/or symptoms were reported involving the gastrointestinal system. Abdomen is flat. : No signs and/or symptoms were reported regarding the genitourinary system. EENT: No signs and/or symptoms were reported regarding the EENT system. Musculoskeletal: Range of motion: intact in all extremities. 09:20 Reassessment: Patient appears in no apparent distress at this time. No changes from tw2 previously documented assessment. Patient and/or family updated on plan of care and expected duration. Pain level reassessed. Patient is alert, oriented x 3, equal unlabored respirations, skin warm/dry/pink. Patient states feeling better. 10:00 Reassessment: Patient appears in no apparent distress at this time. No changes from tw2 previously documented assessment. Patient and/or family updated on plan of care and expected duration. Pain level reassessed. Patient is alert, oriented x 3, equal unlabored respirations, skin warm/dry/pink. 10:28 Reassessment: Patient appears in no apparent distress at this time. No changes from tw2 previously documented assessment. Patient and/or family updated on plan of care and expected duration. Pain level reassessed. Vital Signs: 08:20 BP 148 / 102; Pulse 95; Resp 16; Temp 97.9(TE); Pulse Ox 100% on R/A; Weight 72.57 kg; ss Height 5 ft. 6 in. (167.64 cm); Pain 5/10; 08:20 BP 141 / 100; Pulse 92; ss 09:00 BP 126 / 98; Pulse 83; Resp 20; Pulse Ox 100% on R/A; tw2 09:58 BP 128 / 96; Pulse 84; Resp 19; Pulse Ox 100% on R/A; tw2 08:20 Body Mass Index 25.82 (72.57 kg, 167.64 cm) ED Course: 08:12 Patient arrived in ED. mr 08:14 Jordan Gunderson MD is Attending Physician. rn 08:17 Johns, Catrina, RN is Primary Nurse. tw2 08:17 Bed in low position. Call light in reach. Pulse ox on. NIBP on. tw2 08:17 Arm band placed on. tw2 08:22 Triage completed. ss 09:01 EKG done, by engineering technology instructor. reviewed by Jordan Gunderson MD. at1 09:07 XRAY Chest Pa And Lat (2 Views) In Process Unspecified. EDMS 09:07 XRAY Thoracic Spine (Ap/lat) In Process Unspecified. EDMS 09:45 Inserted saline lock: 20 gauge in right antecubital area, using aseptic technique. tw2 Blood collected. 10:28 No provider procedures requiring assistance completed. IV discontinued, intact, tw2 bleeding controlled, No redness/swelling at site. Pressure dressing applied. Administered Medications: 09:45 Drug: Decadron - Dexamethasone 10 mg Route: IVP; Site: right antecubital; tw2 10:00 Follow up: Response: No adverse reaction tw2 09:48 Drug: Demerol 25 mg Route: IVP; Site: right antecubital; tw2 10:10 Follow up: Response: No adverse reaction; Pain is decreased; RASS: Alert and Calm (0) tw2 Outcome: 10:07 Discharge ordered by . rn 10:28 Patient left the ED. tw2 10:28 Discharged to home ambulatory. tw2 10:28 Condition: stable 10:28 Discharge instructions given to patient, Instructed on discharge instructions, follow up and referral plans. no drinking with medication, no driving heavy equipment, medication usage, Demonstrated understanding of instructions, follow-up care, medications, Prescriptions given X 2. Signatures: Dispatcher [employer] [facility] RonyKiera Roman, MD MD rn Smirch, Shelby, RN RN ss Gonzales, Amanda, tomato grader EKG Tat1 Catrina Johns RN RN tw2 Corrections: (The following items were deleted from the chart) 09:59 09:58 BP 128 / 96; Pulse 84bpm; Resp 17bpm; Pulse Ox 100% RA; tw2 tw2
--- NOTE | 2020-02-24 10:09 | EDPHYS ---
Physician Documentation [facility] Name: Alexandra Ambrosio Age: 29 yrs Sex: Female : 1990 Arrival Date: 02/24/2020 Time: 08:12 Bed 19 Private MD: ED Physician Jordan Gunderson HPI: 02/23 08:32 This 29 yrs old Female presents to ER via Ambulatory with complaints of Back rn Pain. 08:32 The patient presents with pain that is acute. The symptoms are located in the thoracic rn area. Onset: The symptoms/episode began/occurred this morning. The pain does not radiate. Associated signs and symptoms: Pertinent positives: none Pertinent negatives: abdominal pain, chest pain, dysuria, fever, hematuria, incontinence, nausea, numbness, tingling, urinary retention, vomiting, weakness. Modifying factors: The patient symptoms are alleviated by remaining still, the patient symptoms are aggravated by any movement. Severity of symptoms: At their worst the symptoms were moderate, in the emergency department the symptoms are unchanged. The patient has not experienced similar symptoms in the past. Reports woke up with mid back pain this AM, wasn't terrible, went to work, lifted something not terribly heavy, then back pain worsened, worse with movement and twisting, no direct trauma, no fever. Reports pain with movement, and with deep breath. No sob or cough. No urinary symptoms. . Reports vapes. . 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 - Social history:: Smoking status: Patient denies any tobacco usage or history of. - Family history:: not pertinent. - Hospitalizations: : No recent hospitalization is reported. ROS: 08:32 Constitutional: Negative for fever, chills, and weight loss, Eyes: Negative for injury, rn pain, redness, and discharge, Neck: Negative for injury, pain, and swelling, Cardiovascular: Negative for chest pain, palpitations, and edema, Respiratory: Negative for shortness of breath, cough, wheezing, and pleuritic chest pain, Abdomen/GI: Negative for abdominal pain, nausea, vomiting, diarrhea, and constipation, Back: Negative for injury, + midscpaular back pain : Negative for injury, bleeding, discharge, and swelling, MS/Extremity: Negative for injury and deformity, Skin: Negative for injury, rash, and discoloration, Neuro: Negative for headache, weakness, numbness, tingling, and seizure. Exam: 08:32 Constitutional: This is a well developed, well nourished patient who is awake, alert, rn and in no acute distress. Head/Face: Normocephalic, atraumatic. Cardiovascular: Regular rate and rhythm. No pulse deficits. Respiratory: Speaking full sentences. No increased work of breathing, no retractions or nasal flaring. Abdomen/GI: soft, non-tender, no vlad sor rebound Back: No spinal tenderness. No costovertebral tenderness. MS/ Extremity: Pulses equal, no cyanosis. Neurovascular intact. Full, normal range of motion. Equal circumference. Neuro: Awake and alert, GCS 15, oriented to person, place, time, and situation. Cranial nerves II-XII grossly intact. Motor strength 5/5 in all extremities. Sensory grossly intact. 09:05 ECG was reviewed by the Attending Physician. rn Vital Signs: 08:20 BP 148 / 102; Pulse 95; Resp 16; Temp 97.9(TE); Pulse Ox 100% on R/A; Weight 72.57 kg; ss Height 5 ft. 6 in. (167.64 cm); Pain 5/10; 08:20 BP 141 / 100; Pulse 92; ss 09:00 BP 126 / 98; Pulse 83; Resp 20; Pulse Ox 100% on R/A; tw2 09:58 BP 128 / 96; Pulse 84; Resp 19; Pulse Ox 100% on R/A; tw2 08:20 Body Mass Index 25.82 (72.57 kg, 167.64 cm) ss MDM: 08:14 Patient medically screened. rn 10:05 Differential diagnosis: muscle spasm, disc bulge, pleurisy. Data reviewed: vital signs, rn nurses notes, lab test result(s), radiologic studies, plain films, and as a result, I will discharge patient. Counseling: I had a detailed discussion with the patient and/or guardian regarding: the historical points, exam findings, and any diagnostic results supporting the discharge/admit diagnosis, lab results, radiology results, the need for outpatient follow up, to return to the emergency department if symptoms worsen or persist or if there are any questions or concerns that arise at home. Response to treatment: the patient's symptoms have mildly improved after treatment, and as a result, I will discharge patient. Special discussion: I discussed with the patient/guardian in detail that at this point there is no indication for admission to the hospital. It is understood, however, that if the symptoms persist or worsen the patient needs to return immediately for re-evaluation. ED course: Pt improved, clear CXR and thoracic spine, UA neg, preg neg, will dc home as possible disc problem/muscle spasm.. 10:09 ED course: Could also be pleurisy from vaping.. rn 02/23 08:37 Order name: CBC with Diff; Complete Time: 09:29 rn 02/23 08:37 Order name: BMP; Complete Time: 09:29 rn 02/23 08:31 Order name: XRAY Chest Pa And Lat (2 Views); Complete Time: 09:36 rn 02/23 08:37 Order name: D-Dimer; Complete Time: 09:32 rn 02/23 08:44 Order name: Urine Dipstick--Ancillary (enter results); Complete Time: 09:14 bd 02/23 08:44 Order name: Urine --Ancillary (enter results); Complete Time: 09:14 bd 02/23 08:31 Order name: IV Start; Complete Time: 08:49 rn 02/23 08:31 Order name: Urine Dipstick-Ancillary (obtain specimen); Complete Time: 08:39 rn 02/23 08:31 Order name: Urine Test (obtain specimen); Complete Time: 08:39 rn 02/23 08:31 Order name: EKG; Complete Time: 08:32 rn 02/23 08:31 Order name: EKG - Nurse/Tech; Complete Time: 08:39 rn 02/23 08:31 Order name: XRAY Thoracic Spine (Ap/lat); Complete Time: 09:36 rn EC:05 Rate is 97 beats/min. Rhythm is regular. QRS [place] is Normal. ME interval is normal. QRS rn interval is normal. QT interval is normal. No Q waves. T waves are Normal. No ST changes noted. Clinical impression: Normal ECG. Interpreted by me. Reviewed by me. Administered Medications: 09:45 Drug: Decadron - Dexamethasone 10 mg Route: IVP; Site: right antecubital; tw2 10:00 Follow up: Response: No adverse reaction tw2 09:48 Drug: Demerol 25 mg Route: IVP; Site: right antecubital; tw2 10:10 Follow up: Response: No adverse reaction; Pain is decreased; RASS: Alert and Calm (0) tw2 Disposition: 02/24/20 10:07 Discharged to Home. Impression: Muscle spasm of back, Back pain. - Condition is Stable. - Discharge Instructions: Muscle Cramps and Spasms, Pleurisy, Steps to Quit Smoking. - Prescriptions for Cyclobenzaprine 10 mg Oral Tablet - take 1 tablet by ORAL route every 8 hours As needed; 20 tablet. Medrol (Johnson) 4 mg Oral Tablets, Dose Pack - take 1 tablet by ORAL route as directed - follow package instructions; 1 packet. - Medication Reconciliation Form, Thank You Letter, Antibiotic Education, Prescription Opioid Use, Work release form form. - Follow up: Private Physician; When: As needed; Reason: Recheck today's complaints, Re-evaluation by your physician. - Problem is new. - Symptoms have improved. Signatures: Dispatcher [employer] EDJordan Orozco MD MD rn Smirch, Shelby, RN RN Catrina Johns RN RN tw2 Corrections: (The following items were deleted from the chart) 10:28 10:07 02/24/2020 10:07 Discharged to Home. Impression: Muscle spasm of back; Back pain. tw2 Condition is Stable. Forms are Work release form, Medication Reconciliation Form, Thank You Letter, Antibiotic Education, Prescription Opioid Use. Follow up: Private Physician; When: As needed; Reason: Recheck today's complaints, Re-evaluation by your physician. Problem is new. Symptoms have improved. rn
[2020-02-24 10:46] VITALS: TEMP 97.9; O2SAT 100
[2020-02-24 10:57] VITALS: BP 128/96
--- NOTE | 2020-02-25 07:02 | EKG ---
Test Date: 2020-02-24 Test Time: 08:40:57 Production Recorder: EDD MEASUREMENT RESULTS: Intervals: Rate: 97 WI: 156 QRSD: 78 QT: 358 QTc: 454 Barton: P: 61 WI: 156 QRS: 17 T: 48 INTERPRETIVE STATEMENTS: Normal sinus rhythm Normal ECG Compared to ECG 06/07/2018 14:08:32 Atrial abnormality no longer present Electronically Signed On 02-25-20 07:00:18 CDT by Sandor Cagle
== END 2020-02-24 10:28 | disposition home or self-care (01) ==
LOC: ER 08:08
DX: M54.9 Dorsalgia, unspecified (principal); M62.830 Muscle spasm of back
CPT/HCPCS: 93005; 85025; 80048; 36415; 81025; 85379; 81003; 71046; 72070; 96375; 96374; 99284; J1100; J2175 ×2

== ENCOUNTER 2021-04-24 15:48 | Emergency (ER) | payer OTHER ==
--- OUTSIDE RECORDS SUMMARY | 2021-04-24 15:52 | XMS REPORT | Continuity of Care Document ---
:1990 Author Organization [facility] t Address 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 Anxiety 1-18 da and and 00:00: Medical depressive Depressive 00 Gr oup disorder Disorder Seasonal Seasonal Problem Active [place] allergic Allergic 8-18 da rhinitis Rhinitis 00:00: Medica l 00 Group Generalize Generalize Problem Active M [facility] d anxiety d Anxiety 7 da disorder Disorder 00:00: Medica l 00 Group Feeling Feeling Problem Active [place] stressed Stressed 7- da 00:00: Medical 00 Group Cystic Cystic Problem Active [place] acne Acne 7- da 00:00: Medical 00 Group Acute Acute Problem Active [place] tonsilliti Tonsilliti 3- da s s 00:00: Medical 00 Group Scalp Scalp Problem Active [place] psoriasis Psoriasis 3- da 00:00: Medical 00 Group Alcohol Alcohol Disease Active [place] use use 06-13 Methodi disorder, disorder, 00:00: st mild, mild, 00 abuse abuse Cannabis Cannabis Disease Active [facility] on use use 06-13 Methodi disorder, disorder, 00:00: st mild, mild, 00 abuse abuse 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: 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 disorder, disorder, without without psychotic psychotic features features Plaque Plaque Problem Active [place] psoriasis Psoriasis -05 da 00:00: Medical 00 Group Streptococ Streptococ [...] [place] ankle Ankle da Medical Group Suicidal Suicidal Disease Active Harri s behavior behavior Health with with attempted attempted self-injur self-injur y y 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 Health overdose, overdose, intentiona intentiona l l self-harm, self-harm, initial initial encounter encounter Current Current Disease Active [place] severe severe Health episode of episode of major major depressive depressive disorder disorder without without psychotic psychotic features features without without prior prior episode episode Adjustment Adjustment Disease Active H arris disorder disorder Health with mixed with mixed disturbanc disturbanc e of e of emotions emotions and and conduct conduct Depression Depression Disease Active [facility] Health Allergies, Adverse Reactions, Alerts This patient has no known allergies or adverse reactions. Family History Family Member Diagnosis Comments Start Date Stop Date Source Natural brother OCD Olivier Bagley ethodist Maternal grandfather Alcohol abuse [place] Maternal grandfather Anxiety disorder [place] Bahai Maternal grandfather Drug abuse [place] Maternal grandfather OCD [place] Natural mother Anxiety disorder [place] Social History Social Habit Start Date Stop Date Quantity Comments Source Cigarettes smoked 2018-06-11 2018-06-11 Olivier Navarrete current (pack per 00:00:00 00:00:00 day) - Reported Tobacco use and 2018-06-11 2018-06-11 Never used [facility] ethodist exposure 00:00:00 00:00:00 Alcohol intake 2018-06-11 2018-06-11 Current [facility] thodist 00:00:00 00:00:00 non-drinker of alcohol (finding) Tobacco Comment 2018-06-09 2018-06-09 2 months [facility] ethodist 00:00:00 00:00:00 History of tobacco 2018-04-08 2018-06-09 Current smoker Dae paige Bahai use 00:00:00 00:00:00 Sex [birth year] [facility] ethodist 00:00:00 00:00:00 Smoking Status Start Date Stop Date Source Former smoker 2018-06-11 00:00:00 2018-06-11 00:00:00 [place] Current every day smoker 2018-06-03 00:00:00 [facility] Medications Ordered Filled Start Stop Current Ordering Indication Dosage Frequency Signature Comments Components Source Medication Medication Date Date Medication? Clinician (SIG) Name Name sertraline Yes Adjustment 50mg QD Take 1 [facility] (ZOLOFT) 50 8-28 disorder tablet by Health mg tablet 00:00: with mixed mouth 00 disturbance daily. of emotions and conduct Prozac 20 Prozac 20 No 1capsul Q1D Prozac 20 [place] mg capsule mg capsule e(s) mg capsule da Take 1 Take 1 Take 1 Medical capsule capsule capsule Group every day every day every day by oral by oral by oral route. route. route. Trileptal Trileptal No 1 BID Trileptal [place] 300 mg 300 mg 300 mg da tablet Take tablet Take tablet Medical 1 tablet 1 tablet Take 1 Group twice a day twice a day tablet by oral by oral twice a route. route. day by oral route. Immunizations Ordered Immunization Filled Immunization Date Status Commen ts Source Name Name influenza, influenza, 2020-07-13 Completed [place] injectable, injectable, 00:00:00 Medical Grou p quadrivalent quadrivalent influenza, influenza, 2019-11-04 Completed [place] injectable, injectable, 00:00:00 Medical Grou p quadrivalent quadrivalent Vital Signs Vital Name Observation Time Observation Value Comments Source BP Diastolic 2020-09-08 00:00:00 91 mm[Hg] [facility] Height 2020-09-08 00:00:00 64 [in_i] [facility] BMI (Body Mass 2020-09-08 00:00:00 23.5 kg/m2 [facility]) Group BP Systolic 2020-09-08 00:00:00 119 mm[Hg] [facility] Body Weight 2020-09-08 00:00:00 2192 [oz_av] [facility] BP Diastolic 2020-08-26 00:00:00 96 mm[Hg] [facility] Height 2020-08-26 00:00:00 64 [in_i] [facility] BMI (Body Mass 2020-08-26 00:00:00 23.3 kg/m2 [place] Group BP Systolic 2020-08-26 00:00:00 130 mm[Hg] [facility] Body Weight 2020-08-26 00:00:00 2176 [oz_av] [facility] BP Diastolic 2020-07-24 00:00:00 87 mm[Hg] [facility] Height 2020-07-24 00:00:00 64 [in_i] [facility] BMI (Body Mass 2020-07-24 00:00:00 24 kg/m2 [facility]) Group BP Systolic 2020-07-24 00:00:00 126 mm[Hg] [facility] Body Weight 2020-07-24 00:00:00 2236.8 [oz_av] [facility] Height 2020-05-26 00:00:00 64 [in_i] [facility] BMI (Body Mass 2020-05-26 00:00:00 26.4 kg/m2 [facility] Body Weight 2020-05-26 00:00:00 2464 [oz_av] [facility] BP Diastolic 2019-11-19 00:00:00 87 mm[Hg] [facility] Height 2019-11-19 00:00:00 64 [in_i] [facility] BMI (Body Mass 2019-11-19 00:00:00 26.4 kg/m2 [facility] BP Systolic 2019-11-19 00:00:00 116 mm[Hg] [facility] Body Weight 2019-11-19 00:00:00 2464 [oz_av] [facility] BP Diastolic 2019-06-14 00:00:00 97 mm[Hg] [facility] Height 2019-06-14 00:00:00 64 [in_i] [facility] BMI (Body Mass 2019-06-14 00:00:00 24.1 kg/m2 [facility] Medical Index) Group BP Systolic 2019-06-14 00:00:00 124 mm[Hg] [facility] Body Weight 2019-06-14 00:00:00 2242 [oz_av] [facility] BP Diastolic 2019-05-03 00:00:00 84 mm[Hg] [facility] Height 2019-05-03 00:00:00 64 [in_i] [facility] BMI (Body Mass 2019-05-03 00:00:00 21.8 kg/m2 [facility] Medical Index) Group BP Systolic 2019-05-03 00:00:00 119 mm[Hg] [facility] Body Weight 2019-05-03 00:00:00 2032 [oz_av] [facility] BP Diastolic 2018-12-07 00:00:00 72 mm[Hg] [facility] Height 2018-12-07 00:00:00 64 [in_i] [facility] BMI (Body Mass 2018-12-07 00:00:00 20.3 kg/m2 [facility] Medical Index) Group BP Systolic 2018-12-07 00:00:00 104 mm[Hg] [facility] Body Weight 2018-12-07 00:00:00 1888 [oz_av] [facility] Procedures Procedure Date / Time Performed Performing Clinician Daphne beasley Lapapetra 2015-01-28 00:00:00 Meghann Devine dical Cholecystectomy/graph Group Plan of Care Planned Activity Planned Date Details Comments Source Future Scheduled 2021-07-09 IMM Influenza [facility] 00:00:00 Seasonal Jul to December (>/= 19 yrs) [code = IMM Influenza Seasonal Jul to December (>/= 19 yrs)] Future Scheduled 2021-05-09 INFLUENZA VACCINE [place] [facility] Test 00:00:00 [code = INFLUENZA VACCINE] Future Scheduled 2020 Screening for [facility] 00:00:00 malignant neoplasm of cervix (procedure) [code = 174884197] Future Scheduled 2020 Screening for Mike [facility] Test 00:00:00 malignant neoplasm of cervix (procedure) [code = 483337936] Future Scheduled 2011 Screening for [facility]ier [facility] thodist Test 00:00:00 malignant neoplasm of cervix (procedure) [code = 634884450] Future Scheduled 2008 Hepatitis C [facility]ist Test 00:00:00 screening (procedure) [code = 071381116] Future Scheduled 2002 COVID-19 Vaccine (1) Arash [facility] Test 00:00:00 [code = COVID-19 Vaccine (1)] Future Scheduled 2002 COVID-19 VACCINE (1) Cathie aneudy [facility]ai Test 00:00:00 [code = COVID-19 VACCINE (1)] Encounters Start End Encounter Admission Attending Care Care Encounter Source Date/Time Date/Time Type Type Clinicians Facility Department ID 2021-03-18 2021-03-18 Emergency Chu, [facility] [id number] 11:39:00 16:01:00 Jai Olea [id number] [place] [id number] Gary [id number] 2021-03-18 2021-03-18 Orders Doctor RILEY [id number] 00:00:00 00:00:00 Only Unassigned, ELIZABETH [id number] [place] [id number] 2020-09-08 2020-09-08 Darian BAUMAN [place] - [id number] Yudi melendez 00:00:00 00:00:00 MD Guillaume: [address] [facility] - [address], [facility] [place] [address] , Ph. 2020-08-26 2020-08-26 Darian BAUMAN [place] - [id number] M [facility] 00:00:00 00:00:00 MD Guillaume: [facility] [address] [place] [phone] , Ph. 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 2020-05-26 2020-05-26 Darian BAUMAN [place] - [id number] M [facility] 00:00:00 00:00:00 MD Guillaume: [facility] [address] [place] [phone] , Ph. 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 [id number] MATERNAL [id number] & [address] 2019-05-03 2019-05-03 Darian BAUMAN [place] - [id number] M [facility] 00:00:00 00:00:00 MD Guillaume: [address], [place] - [address], [facility] [place] [address] , Ph. 2018-12-07 2018-12-07 Darian Richmond [facility] [place] - [id number] M nora 00:00:00 00:00:00 MD Guillaume: [address], [place] - [address], [facility] [address] , Ph. 2018-06-03 2018-06-03 Emergency [facility] MED [id number] 4 [place] 14:44:33 14:44:33 Health Results Test Description Test Time Test Comments Results Result Comments Source [email or web address] 2020-08-26 09:50:00 Test Item Value Reference Range Interpretation Comme nts Adenovirus Ab [Presence] in Unspecified specimen (test not detected not detect code = 00228-9) Coronavirus Ab [Units/volume] in Serum (test code = not detected no t detect 5099-7) Human metapneumovirus RNA [Presence] in Unspecified not detected no t detect specimen by SIMIN with probe detection (test code = 63557-6) Rhinovirus+Enterovirus RNA [Presence] in Unspecified not detected n ot detect specimen by SIMIN with probe detection (test code = 71193-5) Influenza virus A Ag [Presence] in Unspecified specimen not dete cted not detect (test code = 78703-3) Influenza virus A H1 2009 pandemic RNA [Presence] in not detected n ot detect Unspecified specimen by SIMIN with probe detection (test code = 04448-2) Influenza virus A H3 RNA [Presence] in Isolate by SIMIN not detected not detect with probe detection (test code = 95384-4) Influenza virus B Ag [Presence] in Unspecified specimen not dete cted not detect (test code = 35576-9) Parainfluenza virus 1 Ab [Titer] in Serum by Complement not dete cted not detect fixation (test code = 5268-8) Parainfluenza virus 2 Ab [Titer] in Serum by Complement not dete cted not detect fixation (test code = 5269-6) Parainfluenza virus 3 RNA [Presence] in Isolate by SIMIN not detected not detect with probe detection (test code = 48635-4) Parainfluenza virus 4 RNA [Presence] in Unspecified not detected no t detect specimen by SIMIN with probe detection (test code = 45232-9) resp syn virus A (test code = resp syn virus A) not detected not de tect resp syn virus B (test code = resp syn virus B) not detected not de tect Chlamydophila pneumoniae DNA [Presence] in Unspecified not detected not detect specimen by SIMIN with probe detection (test code = 08485-3) Mycoplasma pneumoniae IgG and IgM panel - Serum (test not detected not detect code = 66543-9) [facility]
--- NOTE | 2021-04-24 18:04 | ER ---
Nurse's Notes [facility] Name: Alexandra Ambrosio Age: 30 yrs Sex: Female : 1990 Arrival Date: 04/24/2021 Time: 15:51 Bed Waiting Private MD: Diagnosis: Presentation: 04/24 16:08 Chief complaint: Patient states: R lower jaw tooth pain for 2 days. Pain radiates into ll1 R side of head/ear. No fever. Coronavirus screen: Client denies travel out of the [place] in the last 14 days. At this time, the client does not indicate any symptoms associated with coronavirus-19. Ebola Screen: Patient denies travel to an Ebola-affected area in the 21 days before illness onset. Initial Sepsis Screen: Does the patient meet any 2 criteria? No. Patient's initial sepsis screen is negative. Does the patient have a suspected source of infection? No. Patient's initial sepsis screen is negative. Risk Assessment: Do you want to hurt yourself or someone else? Patient reports no desire to harm self or others. Onset of symptoms was April 23, 2021. 16:08 Method Of Arrival: Ambulatory 1 16:08 Acuity: MELINDA 4 ll1 Historical: - Allergies: 16:09 No Known Allergies; ll1 - PMHx: 16:09 Depression; ll1 - PSHx: 16:09 Cholecystectomy; ll1 - Immunization history:: Client reports receiving the 2nd dose of the Covid vaccine, Flu vaccine is up to date. - Social history:: Smoking status: Reported history of juuling and/or vaping. Patient denies any tobacco usage or history of. Vital Signs: 16:08 BP 149 / 107; Pulse 87; Resp 17; Temp 98.5; Pulse Ox 100% ; Weight 68.04 kg; Height 5 ll1 ft. 6 in. (167.64 cm); Pain 10/10; 16:08 Body Mass Index 24.21 (68.04 kg, 167.64 cm) ll1 ED Course: 15:51 Patient arrived in ED. ds1 16:09 Triage completed. ll1 16:09 Arm band placed on. ll1 Administered Medications: No medications were administered Outcome: 18:03 Patient left the ED. 1 Signatures: Sveta Monae ds1 Estela Lopez, RN RN ll1
[2021-04-24 18:21] VITALS: BP 149/107; TEMP 98.5; O2SAT 100
== END 2021-04-24 18:03 | disposition left against medical advice (07) ==
LOC: ER 15:48
DX: Z53.21 Procedure and treatment not carried out due to patient leaving prior to being seen by health care provider (principal)
CPT/HCPCS: 99281